=== PATIENT | female | born 1950 ===

== ENCOUNTER → 2020-12-17 10:08 | Outpatient (BNVA) | payer MEDICARE, SELFPAY | PROVIDERS: PCP Internal Medicine; Visit Provider Nurse Practitioner Family | DX: M79.7 Fibromyalgia (principal); M79.641 Pain in right hand; M79.642 Pain in left hand | CPT/HCPCS: 99212 ==

== ENCOUNTER → 2022-05-28 13:20 | Outpatient (BNVA) | payer MEDICARE, SELFPAY | PROVIDERS: PCP Internal Medicine; Visit Provider Nurse Practitioner Family | DX: M79.7 Fibromyalgia (principal); M79.641 Pain in right hand; M79.642 Pain in left hand; M25.50 Pain in unspecified joint; E11.42 Type 2 diabetes mellitus with diabetic polyneuropathy; F32.A Depression, unspecified; Z79.84 Long term (current) use of oral hypoglycemic drugs; Z79.899 Other long term (current) drug therapy | CPT/HCPCS: 99212 ==

== ENCOUNTER 2022-06-10 13:38 | Outpatient (REF) | payer OTHER, SELFPAY ==
[2022-06-10 14:48] LABS: Alanine Aminotransferase 9 U/L (0-31); Albumin Level 4.4 g/dL (3.5-5.0); Alkaline Phosphatase 83 U/L (39-117); Anion Gap 12 (12-20); Aspartate Amino Transferase 12 U/L (5-31); Bilirubin Total 0.5 mg/dL (0.0-1.0); Blood Urea Nitrogen 10 mg/dL (9-16); C Reactive Protein 0.36 mg/dL (< or = 0.50); Calcium 9.4 mg/dL (8.4-10.2); Carbon Dioxide 27 mmol/L (22-29); Chloride 105 mmol/L (96-108); Estimated Glomerular Filt Rate > 60; Glucose Random 173 mg/dL (60-115); Potassium 4.2 mmol/L (3.3-5.1); Rheumatoid Factor < 13.0 IU/mL (<15.0); Sodium 140 mmol/L (135-145); Total Protein 7.3 g/dL (6.5-8.0)
[2022-06-10 15:03] LABS: Erythrocyte Sedimentation Rate 16 MM/HR (0-20)
== END 2022-06-10 13:39 | disposition home or self-care (01) ==
LOC: HO.LAB 13:38
PROVIDERS: PCP Internal Medicine; Visit Provider Nurse Practitioner Family
DX: M79.641 Pain in right hand (principal); M79.642 Pain in left hand; M25.50 Pain in unspecified joint
CPT/HCPCS: 36415; 80053; 85652; 86140; 86431

== ENCOUNTER 2023-05-27 13:08 | Outpatient (AMB) | payer OTHER, SELFPAY ==
--- NOTE | 2023-05-27 13:11 | MHC.OFFVIS ---
Intake Vital Signs 05/27/23 13:30 Height 5 ft 6 in Weight 169 lb 5.04 oz BMI 27.3 BP 132/60 Blood Pressure Location Rt brachial Position Sitting Pulse 79 Pulse Source Pulse Oximeter Temp 97.4 F Temp Source Skin Pulse Oximetry (%) 98 Oxygen Delivery Method Room Air Intake Visit Reasons: Fibromyalgia Intake Note: Patient last seen 06/25/22 by Juliane, presents today for fibromyalgia follow up and test results. Reports new onset of lumps in different areas of the body. Assistant Golf Course Superintendent Required: No Assistant Golf Course Superintendent Name: Dion [id number] Accompanied by: Self / Same As Patient Allergies pregabalin [From LYRICA] Allergy (Mild, Verified 05/27/23 13:19) HYPER seafood Allergy (Unknown, Uncoded 05/27/23 13:19) Anaphylaxis HPI HPI Comments History of Present Illness Details Ms Royal is 71-year-old female presents for follow-up of fibromyalgia. Prior Visit; 05/2022: Ms Royal is 71-year-old female presents for follow-up of fibromyalgia. Last seen in clinic December 2020. Patient reports continued diffuse arthralgia due to her fibromyalgia. She manages her symptoms with amitriptyline 150 mg at night. She continues to follow with mental health and states her depression is well controlled on fluoxetine. She states she tried Lyrica in the past but found it was not helpful. She was prescribed baclofen in the past, she states she cannot recall taking this medication. She reports so far the medications she has tried for her fibromyalgia symptoms have not been helpful. She states she is not able to exercise due to her pain. She uses a cane that she states is needed for balance issues. She reports bilateral hand pain and numbness that started 2 months ago. She admits to weakness, pain and numbness throughout both hands. She states the numbness is present during the day and night. She states she has an upcoming appointment with OT and her primary care has ordered bilateral hand x-rays to [facility]. She reports diabetes mellitus which she states has been well controlled. She also has history of peripheral neuropathy. Denies history of iritis, uveitis, oral ulcers, inflammatory bowel disease, fevers, rash or Raynaud's. [facility] Medical History (Updated 05/27/23 @ 14:03 by STEFFEN Escobar) Carpal tunnel syndrome on both sides Medication monitoring encounter Uterine cancer Surgical History Hx of tonsillectomy Hx of cholecystectomy Hx of hysterectomy Family History Father HTN (hypertension) Diabetes Other Asthma Social History (Updated 05/27/23 @ 13:32 by PO Maki) Household Members: None Housing: House Are you a primary critical care cns to a significant other at home: No Do you presently have visiting nurse or other home services: Yes ([employer]) Alcohol intake: former Patient Tobacco Use Status: Never used Tobacco Current occupational status: retired Physical Exam Vital Signs: Last Vital Signs Temp 97.4 F 05/27/23 13:30 Pulse 79 05/27/23 13:30 BP 132/60 05/27/23 13:30 Pulse Ox 98 05/27/23 13:30 Oxygen Delivery Method Room Air 05/27/23 13:30 BMI result Body Mass Index 27.3 APPEARANCE: Patient in no acute distress EYES: no redness, pupils equal and reactive to light, eyelids normal EARS: External ear normal, canal clear and tympanic membrane normal. NOSE/SINUS: Airflow through both nares, no nasal discharge, no bleeding THROAT: Oral mucosa moist, no ulcerations NECK: No thyromegaly or masses, no adenopathy, trachea midline. HEART: Regular rhythm, S1-S2 heard, no murmurs, rubs or gallops. LUNG: Clear to auscultation, respiratory rate regular nonlabored. ABD: Normal bowel sounds, abdomen soft, nontender. EXTREMITIES: No edema, no calf tenderness, normal peripheral pulses. NEURO: Oriented and alert x3. No focal weakness. Reflexes symmetric. Antalgic, walks with a ramsey. SKIN: No inflammatory or neoplastic lesions. Normal color and turgor JOINT EXAM:?? Cervical Spine: Full range of motion without pain; no tenderness. Thoracic Spine:? No scoliosis.? No tenderness on palpation. Lumbar Spine: Alignment normal.? Full range of motion without pain, but some tenderness. Hands: LEFT: Normal range of motion. Tenderness reported to palpation throughout all MCPs and PIPs, and at the base of the CMC. No synovitis. No increased warmth or erythema. Able to make a full fist and has a good biotechnologist strength. Negative Tinel's sign, negative Phalen sign. RIGHT: Normal range of motion. tenderness to palpation at the base of the CMC otherwise without tenderness, swelling, increased warmth or erythema. Able to make a full fist and has good biotechnologist strength. Negative Tinel sign, negative Phalen sign. Wrists:? Normal range of motion. Pain reported with flexion and extension. Tenderness to palpation over the center of the wrist bilaterally, possibly some soft tissue swelling. No increased warmth or erythema. Elbows: Normal pain-free range of motion without tenderness, swelling, increased warmth or erythema. Shoulders:?? Full range of motion without pain. Tenderness at joint line but no weakness, swelling, increased warmth or erythema. Hips:? Full range of motion without pain. Hip bursa:? No tenderness. Knees:?? Normal pain-free range of motion without tenderness, swelling, increased warmth or erythema.? There is no effusion or crepitation Ankles:? Normal pain-free range of motion without tenderness, swelling, increased warmth or erythema. Feet:? Normal pain-free range of motion without tenderness, swelling, increased warmth or erythema. Tender points: Tenderness to digital palpation at the occiput, trapezius, second rib, lateral epicondyle, knees, greater trochanter and gluteal area bilaterally. Results Reviewed Results Reviewed: 03/09/2019 [facility] CPK 45, CRP 0.18, sed rate 13, immunofixation panel no monoclonal protein detected, CCP > 16, Sjogren's antibodies negative, Lyme negative. 05/10/2018-x-ray bilateral hand-unremarkable 05/10/2018-x-ray bilateral feet with degenerative changes. Assessment & Plan Assessment & Plan (1) Fibromyalgia: Code(s): M79.7 - Fibromyalgia (2) Bilateral hand pain: Code(s): M79.641 - Pain in right hand; M79.642 - Pain in left hand (3) Carpal tunnel syndrome on both sides: Code(s): G56.03 - Carpal tunnel syndrome, bilateral upper limbs (4) Medication monitoring encounter: Code(s): Z51.81 - Encounter for therapeutic drug level monitoring (5) Peripheral neuropathy: Code(s): G62.9 - Polyneuropathy, unspecified Qualifiers: Peripheral neuropathy type: polyneuropathy, other Qualified Code(s): G62.89 - Other specified polyneuropathies Plan #Chronic bilateral hand pain/CTS. Bilateral hand X-rays in 2019 were unremarkable but will update imaging. On exam she has tenderness to palpation throughout the left MCPs and PIPs and bilateral CMCs. No synovitis noted. She has pain in both wrists with range of motion, and continue with tenderness to palpation and soft tissue swelling in the center of each wrist as noted at prior visit (r>l). She complains of numbness and tingling to fingers, CTS test negative of PE. She did say she had surgery to the left hand for CTS but it is still present. She did not want to do the right hand. Will check CMP, CRP and sed rate. Previous CCP negative, also negative rheumatoid factor found. I will do hand xrays, give her a course of prednisone. She may benefit from a cockup splint and will an RX for that. #FM/Medication Monitoring: She continues with multiple fibromyalgia tender points She can continue on her current regimen for the fibromyalgia Follow-up in 2 months. 35 minutes spent reviewing chart, evaluating patient documenting. Orders: Orders Erythrocyte Sedimentation Rate Today G56.03 - Carpal tunnel syndrome, bilateral upper limbs, Z51.81 - Encounter for therapeutic drug level monitoring Complete Blood Count Auto Diff Today G56.03 - Carpal tunnel syndrome, bilateral upper limbs, Z51.81 - Encounter for therapeutic drug level monitoring Comprehensive Met. Panel Today G56.03 - Carpal tunnel syndrome, bilateral upper limbs, Z51.81 - Encounter for therapeutic drug level monitoring C Reactive Protein Today G56.03 - Carpal tunnel syndrome, bilateral upper limbs, Z51.81 - Encounter for therapeutic drug level monitoring XR hand LT min 3V Today M79.641 - Pain in right hand, M79.642 - Pain in left hand XR hand RT min 3V Today M79.641 - Pain in right hand, M79.642 - Pain in left hand Medications: New prednisone 4 tablets x 7 days 3 tablets x 7 days 2 tablets x 7 days 1 tablet x 7 days 70 tabs 1RF Hand pain and Swelling M79.641 - Pain in right hand, M79.642 - Pain in left hand Coding Level of Care Code Est Pt Level 4 (18063) Diagnoses Fibromyalgia M79.7 Bilateral hand pain M79.641; M79.642 Carpal tunnel syndrome on both sides G56.03 Medication monitoring encounter Z51.81 Other polyneuropathy G62.89 Peripheral neuropathy type: polyneuropathy, other
[2023-05-27 13:30] VITALS: BP 132/60; PULSE 79; TEMP 36.3; O2SAT 98; BMI 27.3
== END 2023-05-27 14:12 | disposition home or self-care (01) ==
PROVIDERS: PCP Internal Medicine; Visit Provider Nurse Practitioner Family
DX: M79.7 Fibromyalgia (principal); M79.641 Pain in right hand; M79.642 Pain in left hand; G56.03 Carpal tunnel syndrome, bilateral upper limbs; Z51.81 Encounter for therapeutic drug level monitoring; G62.89 Other specified polyneuropathies
CPT/HCPCS: 99214

== ENCOUNTER → 2023-05-27 13:08 | Outpatient (BNVA) | payer OTHER, SELFPAY | PROVIDERS: PCP Internal Medicine; Visit Provider Nurse Practitioner Family | DX: M79.7 Fibromyalgia (principal); Z51.81 Encounter for therapeutic drug level monitoring; M79.641 Pain in right hand; M79.642 Pain in left hand; G56.03 Carpal tunnel syndrome, bilateral upper limbs; G62.89 Other specified polyneuropathies; Z79.899 Other long term (current) drug therapy | CPT/HCPCS: 99212 ==

== ENCOUNTER 2023-07-27 14:11 | Outpatient (AMB) | payer OTHER, SELFPAY ==
--- NOTE | 2023-07-27 14:14 | MHC.OFFVIS ---
Vital Signs 07/27/23 14:20 Height 5 ft 6 in Weight 165 lb 12.602 oz BMI 26.8 BP 102/62 Blood Pressure Location Rt brachial Position Sitting Pulse 70 Pulse Source Pulse Oximeter Pulse Oximetry (%) 97 Oxygen Delivery Method Room Air Intake Visit Reasons: Hand/Wrist Pain/FM Intake Note: Patient last seen 05/27/23, presents today for follow up and test results. City Routeman Required: Yes City Routeman Name: [id number] Kaleb Information Interpreted: clinical only Accompanied by: Self / Same As Patient Allergies pregabalin [From LYRICA] Allergy (Mild, Verified 07/27/23 14:21) HYPER seafood Allergy (Unknown, Uncoded 07/27/23 14:21) Anaphylaxis HPI Comments Details: Ms Royal is 71-year-old female presents for follow-up of fibromyalgia. She denies hospitalization or new diagnosis onset since last visit Prior Visit; 05/2022: Ms Royal is 71-year-old female presents for follow-up of fibromyalgia. Patient reports continued diffuse arthralgia due to her fibromyalgia. She manages her symptoms with amitriptyline 150 mg at night. She continues to follow with mental health and states her depression is well controlled on fluoxetine. She states she tried Lyrica in the past but found it was not helpful. She was prescribed baclofen in the past, she states she cannot recall taking this medication. She reports so far the medications she has tried for her fibromyalgia symptoms have not been helpful. She states she is not able to exercise due to her pain. She uses a cane that she states is needed for balance issues. She reports bilateral hand pain and numbness that started 2 months ago. She admits to weakness, pain and numbness throughout both hands. She states the numbness is present during the day and night. She states she has an upcoming appointment with OT and her primary care has ordered bilateral hand x-rays to [facility]. She reports diabetes mellitus which she states has been well controlled. She also has history of peripheral neuropathy. Denies history of iritis, uveitis, oral ulcers, inflammatory bowel disease, fevers, rash or Raynaud's. [facility] Medical History (Updated 08/24/23 @ 22:08 by STEFFEN Escobar) Right shoulder pain Bilateral shoulder pain Carpal tunnel syndrome on both sides Medication monitoring encounter Uterine cancer Surgical History Hx of tonsillectomy Hx of cholecystectomy Hx of hysterectomy Family History Father HTN (hypertension) Diabetes Other Asthma Social History (Updated 05/27/23 @ 13:32 by PO Maki) Household Members: None Housing: House Are you a primary lpn care manager to a significant other at home: No Do you presently have visiting nurse or other home services: Yes (ORDERLY) Alcohol intake: former Patient Tobacco Use Status: Never used Tobacco Current occupational status: retired Review of Systems Const All systems reviewed & are unremarkable except as noted in HPI and below Physical Exam Vital Signs: Last Vital Signs Pulse 70 07/27/23 14:20 BP 102/62 07/27/23 14:20 Pulse Ox 97 07/27/23 14:20 Oxygen Delivery Method Room Air 07/27/23 14:20 BMI result Body Mass Index 26.8 APPEARANCE: Patient in no acute distress EYES: no redness, pupils equal and reactive to light, eyelids normal EARS: External ear normal, canal clear and tympanic membrane normal. NOSE/SINUS: Airflow through both nares, no nasal discharge, no bleeding THROAT: Oral mucosa moist, no ulcerations NECK: No thyromegaly or masses, no adenopathy, trachea midline. HEART: Regular rhythm, S1-S2 heard, no murmurs, rubs or gallops. LUNG: Clear to auscultation, respiratory rate regular nonlabored. ABD: Normal bowel sounds, abdomen soft, nontender. EXTREMITIES: No edema, no calf tenderness, normal peripheral pulses. NEURO: Oriented and alert x3. No focal weakness. Reflexes symmetric. Antalgic, walks with a cane. SKIN: No inflammatory or neoplastic lesions. Normal color and turgor JOINT EXAM:?? Cervical Spine: Full range of motion without pain; no tenderness. Thoracic Spine:? No scoliosis.? No tenderness on palpation. Lumbar Spine: Alignment normal.? Full range of motion without pain, but some tenderness. Hands: LEFT: Normal range of motion. Tenderness reported to palpation throughout all MCPs and PIPs, and at the base of the CMC. No synovitis. No increased warmth or erythema. Able to make a full fist and has a good tafe lecturer strength. Negative Tinel's sign, negative Phalen sign. RIGHT: Normal range of motion. tenderness to palpation at the base of the CMC otherwise without tenderness, swelling, increased warmth or erythema. Able to make a full fist and has good tafe lecturer strength. Negative Tinel sign, negative Phalen sign. Wrists:? Normal range of motion. Pain reported with flexion and extension. Tenderness to palpation over the center of the wrist bilaterally, possibly some soft tissue swelling. No increased warmth or erythema. Elbows: Normal pain-free range of motion without tenderness, swelling, increased warmth or erythema. Shoulders:?? Full range of motion without pain. Tenderness at joint line but no weakness, swelling, increased warmth or erythema. Hips:? Full range of motion without pain. Hip bursa:? No tenderness. Knees:?? Normal pain-free range of motion without tenderness, swelling, increased warmth or erythema.? There is no effusion or crepitation Ankles:? Normal pain-free range of motion without tenderness, swelling, increased warmth or erythema. Feet:? Normal pain-free range of motion without tenderness, swelling, increased warmth or erythema. Tender points: Tenderness to digital palpation at the occiput, trapezius, second rib, lateral epicondyle, knees, greater trochanter and gluteal area bilaterally. Office Procedures Joint Injection/Drain Joint Injection/Drain Primary Site: right shoulder Prep: site was prepped using aseptic technique Injected: 40 mg of, Kenalog, 1% plain lidocaine and other (1% Lidocaine 2ml) Approach Used: anterolateral Procedure: The patient tolerated the procedure well Coding 91812 - Large joint Procedure code (CPT) selection complete Results Reviewed Results Reviewed: ESR/CRP/CMP within normal range Assessment & Plan Assessment & Plan (1) Fibromyalgia: Code(s): M79.7 - Fibromyalgia Category: Medical (2) Bilateral hand pain: Code(s): M79.641 - Pain in right hand; M79.642 - Pain in left hand Category: Medical (3) Carpal tunnel syndrome on both sides: Code(s): G56.03 - Carpal tunnel syndrome, bilateral upper limbs Category: Medical (4) Medication monitoring encounter: Code(s): Z51.81 - Encounter for therapeutic drug level monitoring Category: Medical (5) Right shoulder pain: Code(s): M25.511 - Pain in right shoulder Category: Medical Qualifiers: Chronicity: chronic Qualified Code(s): M25.511 - Pain in right shoulder; G89.29 - Other chronic pain Plan #Chronic bilateral hand pain/CTS. Bilateral hands improved with course of Prednisone. Hand xrays were unremarkable. Continue cockup splint at night. #FM/Medication Monitoring: She continues with multiple fibromyalgia tender points She can continue on her current regimen for the fibromyalgia. Renew Tramadol RX which she finds helpful #Right Shoulder Pain: Corticosteroid injection administered. Patient tolerated procedure well. She also given after care instructions Follow-up in 6 months. 20 minutes spent reviewing chart, evaluating patient documenting. Orders: Orders AMB Joint Injection/Aspiration 07/27/23 M25.511 - Pain in right shoulder, M25.512 - Pain in left shoulder Medications: New tramadol 50 mg PO BID PRN 60 tabs 2RF pain M79.7 - Fibromyalgia Coding Level of Care Code Est Pt Level 3 (59466) Complex EM visit Add On G2211 Diagnoses Fibromyalgia M79.7 Bilateral hand pain M79.641; M79.642 Carpal tunnel syndrome on both sides G56.03 Medication monitoring encounter Z51.81 Chronic right shoulder pain M25.511; G89.29 Chronicity: chronic CPT Codes Coding - 21087 Large joint: 37066 - Large joint ([id number])
[2023-07-27 14:20] VITALS: BP 102/62; PULSE 70; O2SAT 97; BMI 26.8
== END 2023-07-27 14:41 | disposition home or self-care (01) ==
LOC: HO.RHE 14:11
PROVIDERS: PCP Internal Medicine; Visit Provider Nurse Practitioner Family
DX: M79.7 Fibromyalgia (principal); M79.641 Pain in right hand; M79.642 Pain in left hand; G56.03 Carpal tunnel syndrome, bilateral upper limbs; Z51.81 Encounter for therapeutic drug level monitoring; M25.511 Pain in right shoulder; G89.29 Other chronic pain
CPT/HCPCS: 20610; 99213

== ENCOUNTER → 2023-07-27 14:11 | Outpatient (BNVA) | payer OTHER, SELFPAY | PROVIDERS: PCP Internal Medicine; Visit Provider Nurse Practitioner Family | DX: M25.511 Pain in right shoulder (principal); M25.512 Pain in left shoulder; M79.7 Fibromyalgia; G56.03 Carpal tunnel syndrome, bilateral upper limbs; M79.641 Pain in right hand; M79.642 Pain in left hand; G89.29 Other chronic pain; Z51.81 Encounter for therapeutic drug level monitoring | CPT/HCPCS: 20610; 99212 ==

== ENCOUNTER → 2023-11-30 14:02 | Outpatient (RCR) | payer MEDICARE, SELFPAY ==
[2020-01-26 13:06] LABS: MANUAL DIFF FLAG NO
[2020-01-26 13:07] VITALS: BP 164/71; PULSE 76; RESP 18; TEMP 36.4; O2SAT 96
[2020-01-26 13:11] VITALS: BMI 28.4
--- NOTE | 2020-01-26 13:21 | PM.HEMONCPN ---
Medical Summary - Medical Summary Chief complaint: Follow up Medical Summary: Diagnosis: Biclonal IgG lambda Normal immunoglobulin levels. No anemia, hypercalcemia or renal dysfunction. Blood work done for workup of fibromyalgia. Hematological workup showed normal serum immunofixation, 24 hour urine immunofixation was negative, kappa/lambda ratio normal at 1.03, normal beta 2 microglobulin of 2.0, serum protein electrophoresis showed normal pattern. Medical and Surgical History Hypothyroidism Fibromyalgia Hypertension Hypercholesterolemia Uterine cancer, hysterectomy at age 28 Type 2 diabetes mellitus Peripheral neuropathy Depression/anxiety Asthma Angina Cholecystectomy Bilateral oophorectomy Family History Mother age 96, she had Alzheimer's and asthma. Father age 93. Uterine cancer in her family. 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 Menstrual History Menarche age 11 3 para 3 Interval History Interval history: Patient is here in follow-up. She is doing okay, has no new complaints. She reports no interim medical problems or being started on new medications. No history of any infections. She does report some sweats but no significant fever or chills. Her appetite is okay but she did lose about 4 lb in the last 6 months. She reports no change in bowel habits. She is up-to-date on mammogram and colonoscopy. Review of Systems - Constitutional Reports no additional constitutional complaints - Cardiovascular Reports no additional cardiovascular complaints - Respiratory Reports no additional respiratory complaints - Gastrointestinal Reports no additional gastrointestinal complaints PMFSH Smoking status: Never smoker Home Medications and Allergies Home Medications Medication Instructions Recorded Confirmed Type albuterol sulfate 2 puff PO Q4H PRN 01/26/20 01/26/20 History amitriptyline 1 tab PO BEDTIME 01/26/20 01/26/20 History clonazepam 1 tab PO BEDTIME PRN 01/26/20 01/26/20 History fluoxetine 1 cap PO QAM 01/26/20 01/26/20 History levothyroxine 1 tab PO DAILY 01/26/20 01/26/20 History lisinopril 1 tab PO BID 01/26/20 01/26/20 History metformin 1 tab PO BID 01/26/20 01/26/20 History Allergies Allergy/AdvReac Type Severity Reaction Status Date / Time pregabalin [From LYRICA] Allergy Mild HYPER Verified 01/26/20 13:15 seafood Allergy Unknown Anaphylaxis Uncoded 01/26/20 13:15 Exam Vital signs: Vital Signs Temp 97.6 F 01/26/20 13:07 Pulse 76 01/26/20 13:07 Resp 18 01/26/20 13:07 BP 164/71 H 01/26/20 13:07 Pulse Ox 96 01/26/20 13:07 Intake & Output 01/25/20 01/26/20 01/26/20 18:59 06:59 18:59 Other: Weight 80 kg Weight 80 kg Body Mass Index 28.4 - Constitutional Present: no acute distress - Routine HEENT Exam Head: Present: normal inspection Eye: Present: EOMI - Routine Cardiovascular Exam Cardiovascular: Present: RRR, S1, S2 - Routine Abdominal Exam Present: normal bowel sounds, soft - Routine Extremities Exam Absent: calf tenderness - Routine Skin Exam Present: intact. Absent: cyanosis - Routine Neurological Exam Present: alert, oriented X3 Data - Labs CBC & Chem 7: 01/26/20 13:05 01/26/20 13:05 Progress Note: A/P (1) Biclonal gammopathy Status: Acute Assessment and plan: 1. This is a 68-year-old woman with biclonal IgG lambda, normal immunoglobulin levels. This is not the same as biclonal gammopathy where a patient may have 2 different monoclonal proteins, typically IgA and IgM protein in the same patient. Such patients, who have true monoclonal protein would need workup for multiple myeloma. This is similar to a polyclonal increase in immunoglobulin which could be related to most likely inflammatory or reactive process. Her blood work looks good today. Anemia has resolved. Follow-up as needed. - Time Spent With Patient Total time spent is greater than 50% in coordination of care (as documented) at patient's floor/unit and/or counseling patient: 15 - 24 minutes
[2020-01-26 13:29] LABS: Basophils Percent Auto 0.6 % (0-2); Eosinophils Absolute Auto 0.2 X10*3/uL (0.0-0.4); Eosinophils Percent Auto 2.7 % (0-4); Hematocrit 39.5 % (37-47); Imm Gran Abs Auto 0.02 X10*3/uL (0.00-0.03); Imm Gran Pct Auto 0.3 % (0.0-0.4); Lymphocytes Absolute Auto 2.5 X10*3/uL (1.2-4.9); Lymphocytes Percent Auto 38.1 % (20-40); Mean Corpuscular HGB Conc 32.9 g/dl (31.0-35.0); Mean Corpuscular Volume 91.2 fL (80-98); Mean Platelet Volume 10.8 fL (9.4-12.3); Monocytes Absolute Auto 0.3 X10*3/uL (0.1-1.2); Neutrophils Absolute Auto 3.5 X10*3/uL (2.0-8.3); Neutrophils Percent Auto 53.3 % (45-73); Platelet Count 215 X10*3/uL (160-400); Red Blood Count 4.33 X10*6/uL (4.20-5.50); Red Cell Distribution Width 12.6 % (11.0-16.0); White Blood Count 6.6 X10*3/uL (4.8-10.8)
[2020-01-26 13:57] LABS: Alanine Aminotransferase 8 U/L (0-31); Albumin Level 4.4 g/dL (3.5-5.0); Alkaline Phosphatase 103 U/L (39-117); Anion Gap 15 (12-20); Aspartate Amino Transferase 14 U/L (5-31); Bilirubin Total 0.3 mg/dL (0.0-1.0); Blood Urea Nitrogen 14 mg/dL (9-16); Calcium 9.2 mg/dL (8.4-10.2); Carbon Dioxide 27 mmol/L (22-29); Chloride 104 mmol/L (96-108); Creatinine Clr Calc Pharmacy 67.2; Estimated Glomerular Filt Rate > 60; Glucose Random 141 mg/dL (60-115); Sodium 142 mmol/L (135-145); Total Protein 7.2 g/dL (6.5-8.0)
--- NOTE | 2020-01-26 14:04 | MHC.HEMONC ---
Patient here for folow up today. Pt reports decreased appetite and feeling hot all over for 2 months now. MD made aware, labs drawn, reviewed by .
[2020-01-27 14:06] LABS: Beta-2 Microglobulin, Serum 1.99 mg/L (< OR = 2.51)
[2020-01-30 12:32] LABS: IgA 219 mg/dL (70-320); IgG 840 mg/dL (600-1540); IgM 257 mg/dL (50-300)
== END | disposition home or self-care (01) ==
LOC: HO.ONC 01-26 12:51
PROVIDERS: PCP Internal Medicine; Visit Provider Internal Medicine
DX: D47.2 Monoclonal gammopathy (principal); Z86.2 Personal history of diseases of the blood and blood-forming organs and certain disorders involving the immune mechanism
CPT/HCPCS: 36415; 80053; 82232; 82784; 85025; 86334; 99213

== ENCOUNTER 2024-01-26 14:25 | Outpatient (AMB) | payer OTHER, SELFPAY ==
[2024-01-26 14:29] VITALS: BP 108/60; BMI 25.3
--- NOTE | 2024-01-26 14:29 | A.OFFVIS_ITS ---
Vital Signs 01/26/24 14:29 Height 5 ft 6 in Weight 157 lb BMI 25.3 BP 108/60 Blood Pressure Location Lt brachial Position Sitting Intake Visit Reasons: FM/OA Intake Note: Patient presents today for follow up on fibromyalgia and osteoarthritis. She was last seen in the office on 07/27/23 by Saray Savage. Patient [id number] of swelling in her hands with pins and needles. Policy Director Name: [id number] Nikki Allergies pregabalin [From LYRICA] Allergy (Mild, Verified 01/26/24 14:33) HYPER seafood Allergy (Unknown, Uncoded 01/26/24 14:33) Anaphylaxis Medication List - Last Reconciled 01/26/24 by Sofia Stewart MD acetaminophen ER (Tylenol Arthritis Pain) 650 mg PO Q8H PRN albuterol sulfate 90 mcg/actuation 2 puffs PO Q4H PRN amitriptyline 50 mg PO BEDTIME bupropion HCl XL 150 mg PO DAILY clonazepam 1 mg PO BID PRN diclofenac sodium 1% grams topical QID fluoxetine 1 cap PO QAM fluticasone propionate 110 mcg/actuation (Flovent HFA) 2 puffs inhalation BID levothyroxine 1 tab PO DAILY lisinopril 1 tab PO BID metformin 1 tab PO BID tramadol 50 mg PO BID PRN HPI Comments Details: Patient is a 73-year-old female with diabetes complicated by peripheral neuropathy, hypertension, hypothyroidism and fibromyalgia who presents for follow-up Interval History: Last seen 07/27/2023 with Saray Savage. At that time she was continuing to complain of diffuse arthralgia due to her fibromyalgia. She manages her symptoms with amitriptyline 150 mg at night but states that she still has pain which limits her ability to do anything even get out of bed sometimes. Of note she has noticed that her weight has been decreasing. She states that she has been eating less but states that her appetite has been okay based on what she thinks. Rheumatologic History: Diagnosis of fibromyalgia maintained on amitriptyline. Has tried Lyrica in the past but found it was not helpful. Was also prescribed baclofen in the past but this was also found not to be helpful Current Rheumatology Medication(s): Amitriptyline 150mg Po at bedtime [facility] Medical History (Updated 01/26/24 @ 14:58 by Sofia Stewart MD) Weight loss, unintentional Osteoarthritis involving multiple joints on both sides of body Right shoulder pain Bilateral shoulder pain Carpal tunnel syndrome on both sides Medication monitoring encounter Uterine cancer Surgical History Hx of tonsillectomy Hx of cholecystectomy Hx of hysterectomy Family History Father HTN (hypertension) Diabetes Other Asthma Social History (Updated 05/27/23 @ 13:32 by PO Maki) Household Members: None Housing: House Are you a primary healthcare administration internship to a significant other at home: No Do you presently have 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 ?Clear to auscultation bilaterally. ?No crackles, rales, rhonchi, wheezes heard. Cardiac System Regular rate and rhythm. ?S1 and S2 heard no murmurs. ?Radial pulses intact bilaterally MSK No synovitis noted to any joints. Pain with palpation of MCPs interphalangeal space PIPs DIPs wrists forearm elbows shoulders as well as knees. Tender points:??Tenderness to digital palpation at the occiput, trapezius, second rib, lateral epicondyle, knees, greater trochanter bilaterally, and left gluteal. Results Reviewed Results Reviewed: No results within the past year Assessment & Plan Assessment & Plan (1) Fibromyalgia: Code(s): M79.7 - Fibromyalgia Category: Medical Plan: #Fibromyalgia Patient with fibromyalgia with continued breakthrough pains. We will refer to pain management for assistance with pain control. Encouraged exercises (2) Osteoarthritis involving multiple joints on both sides of body: Code(s): M15.9 - Polyosteoarthritis, unspecified Category: Medical Plan: #OA Patient with polyarticular OA. Recommended topical diclofenac up to 4 times a day. (3) Weight loss, unintentional: Code(s): R63.4 - Abnormal weight loss Category: Medical Plan: #Weight loss Patient with weight loss since her last visit. Unintentional. We will check SPEP (4) Fibromyalgia: Code(s): M79.7 - Fibromyalgia Category: Medical Plan I spent 25 minutes reviewing the record and labs, seeing the patient, discussing the treatment plan and documenting in the medical record ? Orders: Orders Cyclic Citrullinated Peptide Today M79.7 - Fibromyalgia JULITA Reflex Titer and Pattern Today M79.7 - Fibromyalgia Anti Extractable Nuclear Ag Today M79.7 - Fibromyalgia XR hand wrist RT Today M15.9 - Polyosteoarthritis, unspecified, M79.7 - Fibromyalgia Complete Blood Count Auto Diff Today M79.7 - Fibromyalgia C Reactive Protein Today M79.7 - Fibromyalgia Comprehensive Met. Panel Today M79.7 - Fibromyalgia Erythrocyte Sedimentation Rate Today M79.7 - Fibromyalgia Rheumatoid Factor Today M79.7 - Fibromyalgia XR hand wrist LT Today M15.9 - Polyosteoarthritis, unspecified, M79.7 - Fibromyalgia XR knee RT 3V Today M15.9 - Polyosteoarthritis, unspecified, M79.7 - Fibromyalgia XR knee LT 3V Today M15.9 - Polyosteoarthritis, unspecified, M79.7 - Fibromyalgia XR lumbar spine 4V min Today M15.9 - Polyosteoarthritis, unspecified, M79.7 - Fibromyalgia Protein Electrophoresis, Serum Today R63.4 - Abnormal weight loss Referrals Pain Management Referral M79.7 - Fibromyalgia Coding Level of Care Code Est Pt Level 3 (01735) Diagnoses Fibromyalgia M79.7 Osteoarthritis involving multiple joints on both sides of body M15.9 Weight loss, unintentional R63.4
== END 2024-01-26 15:10 | disposition home or self-care (01) ==
PROVIDERS: PCP Internal Medicine; Visit Provider Student in an Organized Health Care Education/Training Program
DX: M79.7 Fibromyalgia (principal); M15.9 Polyosteoarthritis, unspecified; R63.4 Abnormal weight loss
CPT/HCPCS: 99213

== ENCOUNTER → 2024-01-26 14:25 | Outpatient (BNVA) | payer OTHER, SELFPAY | PROVIDERS: PCP Internal Medicine; Visit Provider Student in an Organized Health Care Education/Training Program | DX: M79.7 Fibromyalgia (principal); M15.9 Polyosteoarthritis, unspecified; R63.4 Abnormal weight loss | CPT/HCPCS: 99212 ==

== ENCOUNTER 2024-02-10 13:43 | Outpatient (AMB) | payer OTHER, SELFPAY ==
--- NOTE | 2024-02-10 13:50 | A.OFFVIS_ITS ---
Vital Signs 02/10/24 13:54 Height 5 ft 6 in Weight 159 lb BMI 25.7 BP 124/67 Blood Pressure Location Lt brachial Position Sitting Pulse 72 Pulse Source Pulse Oximeter Pulse Oximetry (%) 97 Oxygen Delivery Method Room Air Intake Visit Reasons: Fibromyalgia Intake Note: Pain today 01/12 Telehealth Case Manager Required: Yes Telehealth Case Manager Language: Linotype Mechanic Name: Ayala- Grandchild Accompanied by: Grand Child Allergies pregabalin [From LYRICA] Allergy (Mild, Verified 02/10/24 13:54) HYPER seafood Allergy (Unknown, Uncoded 01/26/24 14:33) Anaphylaxis HPI HPI Fibromyalgia: Details: Patient is a pleasant 73-year-old Portuguese-speaking female with history of polyarthralgia, anxiety and depression, fibromyalgia and history of uterine cancer presents today for initial evaluation for widespread but pain due to fibromyalgia. She reports pain most significant in lower back and left. Patient was referred to our office by Rheumatology. Denies any recent trauma, injury, or falls. Patient reports impaired gait and balance issues and dizziness and has completed physical therapy about 3 months ago at [facility] with minimal improvement in her pain reduction or functioning. Patient utilizes cane with walking today, reports using walker at home. Pain is constant and is most sever upon awakening in the morning and at night. Pain is rated at 10/10. Back pain is axial and does not radiate into lower extremities. Left knee pain is localized to grossly anterior aspects of left knee with lateral and medial joint tenderness and crepitus on flexion. She denies previous spine or joint injections. Pain affects her daily activities and functioning, mood, sleep, denies any fever or chills, locking or buckling, bladder or bowel dysfunction or saddle anesthesia. Location: Low back, left knee, widespread body pain Duration: Chronic pain, worsening for past 5-6 years Characteristics of symptom or complaint: Aching, spasming, throbbing, sharp, tingling, numbness, dull, heavy Aggravating or associated factors: Movements, walking, prolonged standing, cold weather, stress Relieving factors: Tramadol, Tylenol, amitriptyline, heat, diclofenac gel Treatment: PT at [facility] summer 2023-no relief, cane/walker [facility] Medical History (Updated 02/10/24 @ 14:04 by FE Belle) Weight loss, unintentional Osteoarthritis involving multiple joints on both sides of body Right shoulder pain Bilateral shoulder pain Carpal tunnel syndrome on both sides Medication monitoring encounter Uterine cancer Surgical History Hx of tonsillectomy Hx of cholecystectomy Hx of hysterectomy Family History Father HTN (hypertension) Diabetes Other Asthma Social History (Updated 05/27/23 @ 13:32 by PO Maki) Household Members: None Housing: House Are you a primary director of critical care to a significant other at home: No 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 No acute distress. Alert and oriented. Mood and affect appropriate. Follows and participates in conversation appropriately. Respiratory effort is unlabored. No cough. Able to transition from sit to stand unassisted. Uses cane with ambulation. Ambulates with bilaterally normal heel strike and toe off, reports LLE weakness due to knee pain. General: Yes no CVA tenderness Back/Spine/Pelvis Other: Limited lumbar ROM due to pain. Painful facet loading bilaterally. Lumbar extension reproduces moderate-severe pain. Flexion is intact and reproduces mild pain. No midline tenderness in thoracic or lumbar spine. Multiple widespread TTPs 16/16 bilaterally, including upper and lower extremities.?Demonstrates 4/5 strength of quadriceps bilaterally as well as flexion/dorsiflexion of bilateral feet against resistance. 2+ pedal pulses bilaterally. Straight leg rise with dorsiflexion negative bilaterally. Diminished patellar and achilles reflexes bilaterally. Karoline sign is positive bilaterally, Reuben?s and Stinchfield tests are positive bilaterally. No groin pain with I/E hip rotations. Valsalva maneuver negative. Back: no CVA tenderness Cervical Spine: loss of normal cervical lordosis, cervical muscular tenderness, No Cervical spine tenderness and No step off deformity Thoracic/Lumbar Spine: thoracic and lumbar spine normal to inspection, No Thoracic/lumbar spine scar(s), Lasegue's sign negative, straight leg raise negative bilaterally, pain with thoraco-lumbar ROM, paraspinal muscle tenderness, thoraco-lumbar ROM limited, No thoracic spinal tenderness and lumbar spinal tenderness (L4-S1) Pelvis: buttock tenderness bilaterally Sacroiliac joints: bilaterally tender to palpation Assessment & Plan Assessment & Plan (1) Chronic low back pain: Code(s): M54.50 - Low back pain, unspecified; G89.29 - Other chronic pain Category: Medical (2) Lumbosacral spondylosis: Code(s): M47.817 - Spondylosis without myelopathy or radiculopathy, lumbosacral region Category: Medical (3) Left knee pain: Code(s): M25.562 - Pain in left knee Category: Medical (4) Fibromyalgia: Code(s): M79.7 - Fibromyalgia Category: Medical Plan Lumbar spine imaging to assess degree of degenerative changes, any subluxation, listhesis, compression fractures or pars defects and left knee xray to degree of arthritis. Briefly discussed interventional treatments for chronic low back and left knee pain. Encouraged daily physical activity, adequate hydration, sleep hygiene, consider CBT therapy and acupuncture for fibromyalgia and arthritic pain generators. Patient reports tramadol and amitriptyline are minimally beneficial. I have informed patient and family, I do not offer opioid prescribing. All questions and concerns have been answered and patient agreed with the treatment follow-up for x-ray results and sooner as needed. Orders: Orders XR lumbar spine 6V w bending Today G89.29 - Other chronic pain, M47.817 - Spondylosis without myelopathy or radiculopathy, lumbosacral region, M54.50 - Low back pain, unspecified XR knee LT 3V Today M25.562 - Pain in left knee Coding Level of Care Code New Pt Level 4 (25794) Complex EM visit Add On G2211 Diagnoses Chronic low back pain M54.50; G89.29 Lumbosacral spondylosis M47.817 Left knee pain M25.562 Fibromyalgia M79.7
[2024-02-10 13:54] VITALS: BP 124/67; PULSE 72; O2SAT 97; BMI 25.7
== END 2024-02-10 14:17 | disposition home or self-care (01) ==
LOC: HO.PMC 13:43
PROVIDERS: PCP Internal Medicine; Visit Provider Nurse Practitioner Family
DX: M54.50 Low back pain, unspecified (principal); G89.29 Other chronic pain; M47.817 Spondylosis without myelopathy or radiculopathy, lumbosacral region; M25.562 Pain in left knee; M79.7 Fibromyalgia
CPT/HCPCS: 99204; G2211

== ENCOUNTER → 2024-02-10 13:43 | Outpatient (BNVA) | payer OTHER, SELFPAY | PROVIDERS: PCP Internal Medicine; Visit Provider Nurse Practitioner Family | DX: M79.7 Fibromyalgia (principal); M54.50 Low back pain, unspecified; M25.562 Pain in left knee; G89.29 Other chronic pain; M47.817 Spondylosis without myelopathy or radiculopathy, lumbosacral region | CPT/HCPCS: 99202 ==

== ENCOUNTER 2024-04-20 12:44 | Outpatient (REF) | payer OTHER, SELFPAY ==
--- NOTE | ~2024-04-20 | XR_ITS ---
CLINICAL HISTORY: M15.9 - Polyosteoarthritis, unspecified 4 view left hand and wrist Comparison: None Findings: Bones intact. No dislocations. No significant arthritic change. No erosions. No radiopaque foreign body. IMPRESSION: 1. No acute findings This document has been electronically signed by: Antione Hernandez MD on 04/21/2024 07:37:39
--- NOTE | ~2024-04-20 | XR_ITS ---
CLINICAL HISTORY: M54.50 - Low back pain, unspecified 8 views lumbar spine Comparison: None Findings: Normal alignment, maintained with flexion and extension. No acute fractures or dislocation. Multiple level degenerative disc and facet change. There is aortic calcification. IMPRESSION: No acute findings. This document has been electronically signed by: Antione Hernandez MD on 04/21/2024 07:32:29
--- NOTE | ~2024-04-20 | XR_ITS ---
CLINICAL HISTORY: M15.9 - Polyosteoarthritis, unspecified 3 view right knee Comparison: None Findings: Bones intact. No dislocations. No significant arthritic change or erosions. No joint effusion. No radiopaque foreign body. IMPRESSION: 1. No acute findings. This document has been electronically signed by: Antione Hernandez MD on 04/21/2024 07:31:59
--- NOTE | ~2024-04-20 | XR_ITS ---
CLINICAL HISTORY: M25.562 - Pain in left knee 3 view left knee Comparison: None Findings: No fractures or dislocations. No significant loss of joint space, osteophytes, or erosions. No joint effusion. No radiopaque foreign body. IMPRESSION: 1. No acute findings. This document has been electronically signed by: Antione Hernandez MD on 04/21/2024 07:30:46
--- NOTE | ~2024-04-20 | XR_ITS ---
CLINICAL HISTORY: M15.9 - Polyosteoarthritis, unspecified 4 view right hand Comparison: None Findings: Bones intact. No dislocations. No significant arthritic change. No erosions. No radiopaque foreign body. IMPRESSION: 1. No acute findings This document has been electronically signed by: Antione Hernandez MD on 04/21/2024 07:31:09
[2024-04-20 13:14] LABS: MANUAL DIFF FLAG NO
[2024-04-20 14:09] LABS: Basophils Absolute Auto 0.1 X10*3/uL (0.0-0.2); Basophils Percent Auto 0.9 % (0-2); Eosinophils Absolute Auto 0.2 X10*3/uL (0.0-0.4); Eosinophils Percent Auto 2.1 % (0-4); Hematocrit 37.6 % (37.0-47.0); Hemoglobin 12.5 g/dl (12.0-16.0); Imm Gran Abs Auto 0.02 X10*3/uL (0.00-0.03); Imm Gran Pct Auto 0.3 % (0.0-0.4); Lymphocytes Absolute Auto 2.2 X10*3/uL (1.2-4.9); Mean Corpuscular HGB Conc 33.2 g/dl (31.0-35.0); Mean Corpuscular Hemoglobin 30.2 pg (27.0-33.0); Mean Corpuscular Volume 90.8 fL (80.0-98.0); Mean Platelet Volume 10.7 fL (9.4-12.3); Monocytes Absolute Auto 0.4 X10*3/uL (0.1-1.2); Monocytes Percent Auto 5.1 % (2-11); Neutrophils Absolute Auto 4.3 x10*3/uL (2.0-8.3); Neutrophils Percent Auto 60.6 % (45-73); Platelet Count 203 X10*3/uL (160-400); Red Blood Count 4.14 X10*6/uL (4.20-5.50); Red Cell Distribution Width 13.2 % (11.0-16.0)
[2024-04-20 14:33] LABS: Alanine Aminotransferase 33 U/L (0-31); Albumin Level 4.6 g/dL (3.5-5.0); Alkaline Phosphatase 86 U/L (39-117); Anion Gap 12 (12-20); Aspartate Amino Transferase 24 U/L (5-31); Bilirubin Total 0.4 mg/dL (0.0-1.0); Blood Urea Nitrogen 15 mg/dL (9-16); C Reactive Protein < 0.10 mg/dL (< or = 0.50); Calcium 9.3 mg/dL (8.4-10.2); Carbon Dioxide 28 mmol/L (22-29); Chloride 106 mmol/L (96-108); Estimated Glomerular Filt Rate 59; Glucose Random 202 mg/dL (60-115); Sodium 142 mmol/L (135-145); Total Protein 8.1 g/dL (6.5-8.0)
[2024-04-20 14:34] LABS: Rheumatoid Factor < 13.0 IU/mL (<15.0)
[2024-04-20 14:53] LABS: Erythrocyte Sedimentation Rate 11 MM/HR (0-20)
--- OUTSIDE RECORDS SUMMARY | 2024-04-20 16:11 | XMS_ITS | Continuity of Care Document ---
Author Organization [facility] Address [address] [place] [address]- Care Team Providers Care Sales Agent Financial Report Service Name Role Phone Dino LOYOLA, Bartolo Wilkes Primary Care Physician Encounter [facility] [place] Date(s): 03/09/24 - 04/08/24 [facility]/[address] [address]- Attending Physician: Admcharly, Edgar Encounter Type: Triage Allergies, Adverse Reactions, Alerts Substance Criticality Severity Reaction Reaction Severity Status Lyrica made me feel hyper Active Seafood swelling itching Active Immunizations Given and Recorded Vaccine Date Status Refusal Reason influenza virus vaccine, inactivated 01/05/23 Give n influenza virus vaccine, inactivated 01/20/22 Deuce rded influenza virus vaccine, inactivated 06/08/19 Give n influenza virus vaccine, inactivated 02/11/18 Deuce rded influenza virus vaccine, inactivated 1 12/16/16 Re corded influenza virus vaccine, inactivated 01/23/16 Give n influenza virus vaccine, inactivated 01/29/15 Give n influenza virus vaccine, inactivated 2 12/22/12 Gi bear influenza virus vaccine, inactivated 3 01/26/12 Gi bear influenza virus vaccine, inactivated 4 12/30/10 Gi bear influenza virus vaccine, inactivated 5 01/23/10 Gi bear influenza virus vaccine, inactivated 6 01/24/08 Gi bear influenza virus vaccine, inactivated 01/26/07 Give n influenza virus vaccine, inactivated 02/17/05 Give n influenza virus vaccine, inactivated 7 49 Gi bear SARS-CoV-2 mRNA ([id number]) vax 01/05/23 Recorded pneumococcal 20-valent conjugate vaccine 09/29/22 Given SARS-CoV-2 (COVID-19) mRNA BNT-162b2 vac 03/25/21 Given SARS-CoV-2 (COVID-19) mRNA BNT-162b2 vac 07/12/20 Given SARS-CoV-2 (COVID-19) mRNA BNT-162b2 vac 06/14/20 Given Influenza Virus Vaccine (oldterm) 8 11/24/19 Recor ded zoster vaccine, inactivated 10/09/19 Given zoster vaccine, inactivated 06/08/19 Given tetanus/diphtheria/pertussis, acel(Tdap) 10/09/19 Given tetanus/diphtheria/pertussis, acel(Tdap) 9 05/23/07 Given pneumococcal 13-valent vaccine 01/23/16 Given Zoster Vaccine Live 10 01/09/11 Given pneumococcal 23-valent vaccine 11 06/05/10 Given 1Result Comment: [01/11/2017] [facility] 2Result Comment: [12/22/2012] Ordered by Bratolo Sun MD 3Admin Note: VIS GIVEN:10/05/2011 4Admin Note: VIS01/04/09 gIVEN 5Admin Note: VIS 11/13/2008 GIVEN. Instr. in s&s of anaphylaxis and local reaction, and risks ofvaccine. JENNIFER 6Admin Note: ADM BY DIANA 7Admin Note: given by LAST. 8Result Comment: iveth 9Admin Note: vis given 10Admin Note: GIVEN 11Admin Note: GIVEN VIS 10/31/96 Medications amitriptyline 50 mg oral tablet 1 tablet = 50 mg, By Mouth, Daily at bedtime, # 90 tablet, 3 Refills, Maintenance, 05/25/23 2:12:00 PM EST, Tablet, [facility] #[id number], 164.5, cm, 05/25/23 13:49:00 EST, Height, 78.63, kg, 05/25/23 13:49:00 EST, Dry Weight Start Date: 05/25/23 Status: Ordered Quantity: 90.0 Unit: tablet Repeat number: 4 atorvastatin 20 mg oral tablet 1 tablet, By Mouth, Daily, # 90 tablet, 0 Refills, Maintenance, 02/22/24 12:13:00 PM EST, [facility] #[id number], 164.5, cm, 02/03/24 13:55:00 EDT, Height, 74.1, kg, 10/28/23 13:12:00 EDT, Dry Weight Start Date: 02/22/24 Status: Ordered Quantity: 90.0 Unit: tablet Repeat number: 1 clotrimazole 1% topical cream See Instructions, APPLY EXTERNALLY TO THE AFFECTED AREA TWICE DAILY, # 60 Gm, 1 Refills, Maintenance, 01/05/24 11:41:00 AM EDT, [facility] #[id number], 60, APPLY EXTERNALLY TO THE AFFECTED AREA TWICE DAILY, 164.5, cm, 10/28/23 13:12:00 EDT, Height, 74.1, kg, 10/28/23 13:12:00 EDT, Dry Weight Start Date: 01/05/24 Status: Ordered Quantity: 60.0 Unit: g Repeat number: 2 clotrimazole 1% topical cream See Instructions, APPLY EXTERNALLY TO THE AFFECTED AREA TWICE DAILY, # 60 Gm, 0 Refills, Maintenance, 12/11/22 6:59:00 PM EDT, [facility] #[id number], 60, APPLY EXTERNALLY TO THE AFFECTED AREA TWICE DAILY, 164.5, cm, 09/29/22 14:54:00 EDT, Height, 79.09, kg, 08/25/22 15:48:00 EDT, Dry Weight Start Date: 12/11/22 Status: Ordered Quantity: 60.0 Unit: g Repeat number: 1 docusate sodium 100 mg oral tablet 1 tablet = 100 mg, By Mouth, 2 times a day, PRN for constipation, # 60 tablet, 6 Refills, Maintenance, 07/27/23 4:16:00 PM EDT, Tablet, [email or web address] #[id number], Partial fill upon patient request if the prescription is for a schedule II opioid drug., 164.5, cm, 07/27/23 16:03:00 EDT, Height, 75.45, kg, 07/27/23 16:03:00 EDT, Dry Weight Start Date: 07/27/23 Status: Ordered Quantity: 60.0 Unit: tablet Repeat number: 7 dulaglutide 0.75 mg/0.5 mL subcutaneous solution 0.5 mL = 0.75 mg, Subcutaneous Injection, Every week, rotate injection sites T2DM E11.9 use x 4 week then increase to 1.5 mg weekly, # 2 mL, 0 Refills, Maintenance, 10/12/23 2:21:00 PM EDT, Solution, [email or web address] #[id number], Partial fill upon patient request if the prescription is for a schedule II opioid drug., 164.5, cm, 07/27/23 16:03:00 EDT, Height, 75.45, kg, 07/27/23 16:03:00 EDT, Dry Weight Start Date: 10/12/23 Status: Ordered Quantity: 2.0 Unit: mL Repeat number: 1 FREESTYLE LANCETS 100 FREESTYLE LANCETS 100, See Instructions, # 200 each, 11 Refills, Maintenance, USE DIRECTED, 02/03/23 2:17:00 PM EDT, 164.5, cm, 01/05/23 13:48:00 EDT, Height, 77.27, kg, 01/05/23 13:48:00 EDT, Dry Weight Start Date: 02/03/23 Status: Ordered Quantity: 200.0 Unit: each Repeat number: 1 FREESTYLE LITE BLOOD GLUCOSE STRIPS FREESTYLE LITE BLOOD GLUCOSE STRIPS, See Instructions, # 300 Unknown, 0 Refills, Maintenance, USE DIRECTED THREE TIMES DAILY., 01/16/22 10:17:00 AM EDT, 164.5, cm, 12/23/21 14:13:00 EDT, Height, 83.36, kg, 12/23/21 14:13:00 EDT, Dry Weight Start Date: 01/16/22 Status: Ordered Quantity: 300.0 Unit: Unknown Repeat number: 1 FREESTYLE LITE BLOOD GLUCOSE STRIPS FREESTYLE LITE BLOOD GLUCOSE STRIPS, See Instructions, # 300 Unknown, 0 Refills, Maintenance, USE DIRECTED THREE TIMES DAILY., 04/16/22 5:11:00 PM EST, 164.5, cm, 01/20/22 14:05:00 EDT, Height, 83.36, kg, 12/23/21 14:13:00 EDT, Dry Weight Start Date: 04/16/22 Status: Ordered Quantity: 300.0 Unit: Unknown Repeat number: 1 FREESTYLE LITE BLOOD GLUCOSE STRIPS FREESTYLE LITE BLOOD GLUCOSE STRIPS, See Instructions, # 300 Unknown, 0 Refills, Maintenance, USE DIRECTED THREE TIMES DAILY., 07/06/22 3:05:00 PM EDT, 164.5, cm, 04/23/22 15:40:00 EST, Height, 83.36, kg, 12/23/21 14:13:00 EDT, Dry Weight Start Date: 07/06/22 Status: Ordered Quantity: 300.0 Unit: Unknown Repeat number: 1 Freestyle Lite Lancets See Instructions, # 200 each, Refills 5, Tot. Refills 5, Maintenance, use as directed for Type 2 Diabetes Mellitus, 02/19/23 12:12:00 PM EST, Supply, 164.5, cm, 02/19/23 11:36:00 EST, Height, 77, kg,02/19/23 11:36:00 EST, Dry Weight Start Date: 02/19/23 Stop Date: 08/18/23 Status: Ordered Quantity: 200.0 Unit: each Repeat number: 6 Freestyle Lite Monitor See Instructions, # 1 each, Maintenance, check sugar 2-3 times a day, diabetes e 11.9, 12/23/21 2:42:00 PM EDT, Supply, 164.5, cm, 12/23/21 14:13:00 EDT, Height, 83.36, kg, 12/23/21 14:13:00 EDT, Dry Weight Start Date: 12/23/21 Status: Ordered Quantity: 1.0 Unit: each Repeat number: 1 Freestyle Lite Test Strips See Instructions, # 270 each, Refills 3, Tot. Refills 3, Maintenance, check 3 times a day Type 2 Diabetes Mellitus; E11.9, 3 month supply, 02/19/23 12:12:00 PM EST, Compound, 164.5, cm, 02/19/23 11:36:00 EST, Height, 77, kg, 02/19/23 11:36:00 EST, Dry Weight Start Date: 02/19/23 Stop Date: 02/14/24 Status: Ordered Quantity: 270.0 Unit: each Repeat number: 4 Freestyle Lite Test Strips See Instructions, # 180 each, Refills 1, Tot. Refills 1, Maintenance, use as directed for Type 2 Diabetes Mellitus; E11.9, 3 month supply, 12/13/19 3:27:00 PM EDT, Duplcate rx. Original rx sent 06/29/19. Remaining refill sent., Compound, 164.5, cm, 12/12/19 10:13:00 EDT, Height, 82.27, kg, 06/08/19 15:07:00 EST, Dry Weight Start Date: 12/13/19 Stop Date: 06/10/20 Status: Ordered Quantity: 180.0 Unit: each Repeat number: 2 Jardiance 25 mg oral tablet 1 tablet = 25 mg, By Mouth, Daily in AM, # 90 tablet, 3 Refills, Maintenance, 05/25/23 2:12:00 PM EST, [facility] #[id number], Partial fill upon patient request if the prescription is for a schedule II opioid drug., 164.5, cm, 05/25/23 13:49:00 EST, Height, 78.63, kg, 05/25/23 13:49:00 EST, DryWeight Start Date: 05/25/23 Status: Ordered Quantity: 90.0 Unit: tablet Repeat number: 4 levothyroxine 75 mcg (0.075 mg) oral tablet 1 tablet, By Mouth, Daily, # 90 tablet, 1 Refills, 01/05/24 11:41:00 AM EDT, [facility] #[id number], 164.5, cm, 10/28/23 13:12:00 EDT, Height, 74.1, kg, 10/28/23 13:12:00 EDT, Dry Weight Start Date: 01/05/24 Status: Ordered Quantity: 90.0 Unit: tablet Repeat number: 2 levothyroxine 75 mcg (0.075 mg) oral tablet See Instructions, TAKE 1 TABLET BY MOUTH DAILY, # 90 tablet, 3 Refills, Maintenance, 05/25/23 2:12:00 PM EST, [facility] #[id number], 164.5, cm, 05/25/23 13:49:00 EST, Height, 78.63, kg, 05/25/2412:49:00 EST, Dry Weight Start Date: 05/25/23 Status: Ordered Quantity: 90.0 Unit: tablet Repeat number: 4 lisinopril 20 mg oral tablet 1, tablet, By Mouth, 2 times a day, # 180 tablet, Refills 3, Maintenance, 02/15/24 12:11:00 PM EST,Route to Pharmacy Electronically, [facility] #[id number], 164.5, cm, 02/03/24 13:55:00 EDT, Height, 74.1, kg, 10/28/23 13:12:00 EDT, Dry Weight Start Date: 02/15/24 Status: Ordered Quantity: 180.0 Unit: tablet Repeat number: 1 metFORMIN 500 mg oral tablet 1 tablet, By Mouth, 2 times a day, # 180 tablet, 0 Refills, Maintenance, 03/21/24 1:44:00 PM EST, [facility] #[id number], 164.5, cm, 02/03/24 13:55:00 EDT, Height, 74.1, kg, 10/28/23 13:12:00 EDT, Dry Weight Start Date: 03/21/24 Status: Ordered Quantity: 180.0 Unit: tablet Repeat number: 1 ProAir HFA 90 mcg/inh inhalation aerosol 2 puffs, Inhalation, Every 4 hours, PRN NEEDED FOR WHEEZING, # 18 Gm, 3 Refills, 01/05/24 11:42:00 AM EDT, [facility] #[id number], 16, 2 puffs Inhalation Every 4 hours,PRN: NEEDED FOR WHEEZING, 164.5, cm, 10/28/23 13:12:00 EDT, Height, 74.1, kg, 10/28/23 13:12:00 EDT, Dry Weight Start Date: 01/05/24 Status: Ordered Quantity: 18.0 Unit: g Repeat number: 4 tiZANidine 2 mg oral tablet See Instructions, TAKE 1 TABLET BY MOUTH THREE TIMES DAILY, # 90 tablet, Refills 3, Tot. Refills 3,02/19/23 12:11:00 PM EST, Instructions Replace Required Details, Route to Pharmacy Electronically, [facility] #[id number], 164.5, cm, 02/19/23 11:36:00 EST, Height, 77, kg, 02/19/23 11:36:00 EST, Dry Weight Start Date: 02/19/23 Status: Ordered Quantity: 90.0 Unit: tablet Repeat number: 4 traMADol 50 mg oral tablet See Instructions, TAKE 1 TABLET BY MOUTH EVERY 12 HOURS DUE 05/25/2022. CAN TAKE. LESS THAN PRESCRIBED. sterile supply technician checked. as stopped taking the tizanidine, # 40 tablet, 1 Refills, Maintenance, 05/24/22 6:30:00 PM EST, [facility] #[id number], 164.5, cm, 04/23/22 15:40:00 EST, Height, 83.36, kg, 12/23/21 14:13:00 EDT, Dry Weight Start Date: 05/24/22 Status: Ordered Quantity: 40.0 Unit: tablet Repeat number: 2 Trulicity Pen 1.5 mg/0.5 mL subcutaneous solution 0.5 mL = 1.5 mg, Subcutaneous Injection, Every week, rotate injection sites, # 2 mL, 11 Refills, Maintenance, 05/25/23 2:35:00 PM EST, Solution, [facility] #[id number], Partial fill upon patient request if the prescription is for a schedule II opioid drug., 164.5, cm, 05/25/23 13:49:00 EST, Height, 78.63, kg, 05/25/23 13:49:00 EST, Dry Weight Start Date: 05/25/23 Status: Ordered Quantity: 2.0 Unit: mL Repeat number: 12 Ventolin HFA 108 mcg/inh inhalation aerosol with adapter See Instructions, INHALE 2 PUFFS BY MOUTH EVERY 4 HOURS NEEDED FOR WHEEZING, # 18 Gm, 0 Refills,Maintenance, 04/16/22 5:09:00 PM EST, [facility] #[id number], 164.5, cm, 01/20/22 14:05:00 EDT,Height, 83.36, kg, 12/23/21 14:13:00 EDT, Dry Weight Start Date: 04/16/22 Status: Ordered Quantity: 18.0 Unit: g Repeat number: 1 Vitamin D3 1000 intl units oral tablet 1 tablet = 25 mcg, By Mouth, Daily, # 90 tablet, 3 Refills, Maintenance, 10/28/23 1:28:00 PM EDT, Tablet, [email or web address] #[id number], Partial fill upon patient request if the prescription is for a schedule II opioid drug., 164.5, cm, 10/28/23 13:12:00 EDT, Height, 74.1, kg, 10/28/23 13:12:00 EDT, Dry Weight Start Date: 10/28/23 Status: Ordered Quantity: 90.0 Unit: tablet Repeat number: 4 Vitamin D3 1000 intl units oral tablet 1 tablet = 25 mcg, By Mouth, Daily, # 90 tablet, 3 Refills, Maintenance, 10/28/23 5:57:00 PM EDT, Tablet, [email or web address] #[id number], Partial fill upon patient request if the prescription is for a schedule II opioid drug., 164.5, cm, 10/28/23 13:12:00 EDT, Height, 74.1, kg, 10/28/23 13:12:00 EDT, Dry Weight Start Date: 10/28/23 Status: Ordered Quantity: 90.0 Unit: tablet Repeat number: 4 Problem List Condition Confirmation Course Effective Dates Status Health Status Informant Angina Confirmed Active Anxiety Confirmed Active Asthma Confirmed Active Depression Confirmed Active Diabetes mellitus type 2 Confirmed Active Diabetic peripheral neuropathy Confirmed Active Limitation due to disability 1 Confirmed Active Drug or alcohol risk assessment 2 Confirmed Active Hypercholesterolemia Confirmed Active Hypertension Confirmed Active Hypothyroidism Confirmed Active *[id number] [employer] Eleanor Baum Confirmed Active Sacroiliitis Confirmed Active 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 1initial Oswestry Disability Index: 40% ( moderate disability ) on 02/05/17 2SOAPP-R; 23 on 02/05/17 Social History Social History Type Response Smoking Status Never (less than 100 in lifetime) entered on: 07/11/20 Sex Sex Representation Female (finding) History and physical note * Event Display: History and Physical Hospital Authored Date: [id number] Laboratory * Event Display: Non [facility] Lab Results Authored Date: * Event Display: Non BH Lab Results Authored Date: * Event Display: Non BH Lab Results Authored Date: * Event Display: Non BH Lab Results Authored Date: Patient Care team information Care Team Personnel Name: Tina GALICIA, Kym Amaya Position: Reference Physician Member Role: Primary Care Nurse Address: [address] [place] [address]- [place] Telecom: Name: Bartolo Sun MD, I Position: [facility] Physician - Primary Care Member Role: PCP Address: [address] [place] [id number]- [place] Telecom: Care Team Related Persons Name: MIGUEL A BARAHONA Name: ALFREDO NDIAYE Name: KITTY NDIAYE Name: ARPAN NDIAYE Name: BRIELLE CHAMBERS Insurance Providers Guarantor name: MIGUEL A MONTEJO Health Plan Information #: 1 Payer: NA Member Number: NA Policy Number: NA Group Number: NA
--- OUTSIDE RECORDS SUMMARY | 2024-04-20 16:11 | XMS_ITS | Continuity of Care Document ---
Author Organization [facility] Address [address] [place] [address]- Care Team Providers Care Section Beamer Name Role Phone Dino LOYOLA, Bartolo Wilkes Primary Care Physician Encounter [facility] [place] Date(s): 02/22/24 - 03/23/24 [facility]/[address] [address]- Encounter Type: Triage Allergies, Adverse Reactions, Alerts Substance Criticality Severity Reaction Reaction Severity Status Seafood swelling itching Active Lyrica made me feel hyper Active Immunizations Given and Recorded Vaccine Date [...] inactivated 7 49 Gi bear SARS-CoV-2 mRNA ([id number]) vax 01/05/23 Recorded pneumococcal 20-valent conjugate vaccine [...] [facility] 2Result Comment: [12/22/2012] Ordered by Bartolo Sun MD 3Admin Note: VIS GIVEN:10/05/2011 4Admin [...] Refills, Maintenance, 05/25/23 2:12:00 PM EST, Tablet, [facility] #[id number], 164.5, cm, 05/25/23 13:49:00 EST, Height, 78.63, kg, 05/25/23 13:49:00 EST, Dry Weight Start Date: 05/25/23 Status: Ordered Quantity: 90.0 Unit: tablet Repeat number: 4 atorvastatin 20 mg oral tablet 1 tablet, By Mouth, Daily, # 90 tablet, 0 Refills, Maintenance, 02/22/24 12:13:00 PM EST, [facility] #[id number], 164.5, cm, 02/03/24 13:55:00 EDT, Height, 74.1, kg, 10/28/23 13:12:00 EDT, Dry Weight Start Date: 02/22/24 Status: Ordered Quantity: 90.0 Unit: tablet Repeat number: 1 clotrimazole 1% topical cream See Instructions, APPLY EXTERNALLY TO THE AFFECTED AREA TWICE DAILY, # 60 Gm, 1 Refills, Maintenance, 01/05/24 11:41:00 AM EDT, [facility] #[id number], 60, APPLY EXTERNALLY TO THE AFFECTED AREA TWICE DAILY, 164.5, cm, 10/28/23 13:12:00 EDT, Height, 74.1, kg, 10/28/23 13:12:00 EDT, Dry Weight Start Date: 01/05/24 Status: Ordered Quantity: 60.0 Unit: g Repeat number: 2 clotrimazole 1% topical cream See Instructions, APPLY EXTERNALLY TO THE AFFECTED AREA TWICE DAILY, # 60 Gm, 0 Refills, Maintenance, 12/11/22 6:59:00 PM EDT, [facility] #[id number], 60, APPLY EXTERNALLY TO THE AFFECTED AREA [...] Refills, Maintenance, 07/27/23 4:16:00 PM EDT, Tablet, [facility] #[id number], Partial fill upon patient request if the [...] Refills, Maintenance, 10/12/23 2:21:00 PM EDT, Solution, [email or web address] #[id number], Partial fill upon patient request if the [...] 3 Refills, Maintenance, 05/25/23 2:12:00 PM EST, [email or web address] #[id number], Partial fill upon patient request if the prescription is for a schedule II opioid drug., 164.5, cm, 05/25/23 13:49:00 EST, Height, 78.63, kg, 05/25/23 13:49:00 EST, DryWeight Start Date: 05/25/23 Status: Ordered Quantity: 90.0 Unit: tablet Repeat number: 4 levothyroxine 75 mcg (0.075 mg) oral tablet 1 tablet, By Mouth, Daily, # 90 tablet, 1 Refills, 01/05/24 11:41:00 AM EDT, [email or web address] #[id number], 164.5, cm, 10/28/23 13:12:00 EDT, Height, 74.1, kg, 10/28/23 13:12:00 EDT, Dry Weight Start Date: 01/05/24 Status: Ordered Quantity: 90.0 Unit: tablet Repeat number: 2 levothyroxine 75 mcg (0.075 mg) oral tablet See Instructions, TAKE 1 TABLET BY MOUTH DAILY, # 90 tablet, 3 Refills, Maintenance, 05/25/23 2:12:00 PM EST, [email or web address] #[id number], 164.5, cm, 05/25/23 13:49:00 EST, Height, 78.63, kg, 05/25/2412:49:00 EST, Dry Weight Start Date: 05/25/23 Status: Ordered Quantity: 90.0 Unit: tablet Repeat number: 4 lisinopril 20 mg oral tablet 1, tablet, By Mouth, 2 times a day, # 180 tablet, Refills 3, Maintenance, 02/15/24 12:11:00 PM EST,Route to Pharmacy Electronically, [email or web address] #[id number], 164.5, cm, 02/03/24 13:55:00 EDT, Height, 74.1, kg, 10/28/23 13:12:00 EDT, Dry Weight Start Date: 02/15/24 Status: Ordered Quantity: 180.0 Unit: tablet Repeat number: 1 metFORMIN 500 mg oral tablet 1 tablet, By Mouth, 2 times a day, # 180 tablet, 0 Refills, Maintenance, 03/21/24 1:44:00 PM EST, [email or web address] #[id number], 164.5, cm, 02/03/24 13:55:00 EDT, Height, 74.1, kg, 10/28/23 13:12:00 EDT, Dry Weight Start Date: 03/21/24 Status: Ordered Quantity: 180.0 Unit: tablet Repeat number: 1 ProAir HFA 90 mcg/inh inhalation aerosol 2 puffs, Inhalation, Every 4 hours, PRN NEEDED FOR WHEEZING, # 18 Gm, 3 Refills, 01/05/24 11:42:00 AM EDT, [email or web address] #[id number], 16, 2 puffs Inhalation Every 4 hours,PRN: [...] Replace Required Details, Route to Pharmacy Electronically, [email or web address] #[id number], 164.5, cm, 02/19/23 11:36:00 EST, Height, 77, kg, 02/19/23 11:36:00 EST, Dry Weight Start Date: 02/19/23 Status: Ordered Quantity: 90.0 Unit: tablet Repeat number: 4 traMADol 50 mg oral tablet See Instructions, TAKE 1 TABLET BY MOUTH EVERY 12 HOURS DUE 05/25/2022. CAN TAKE. LESS THAN PRESCRIBED. seo manager checked. as stopped taking the tizanidine, # 40 tablet, 1 Refills, Maintenance, 05/24/22 6:30:00 PM EST, [email or web address] #[id number], 164.5, cm, 04/23/22 15:40:00 EST, Height, 83.36, kg, 12/23/21 14:13:00 EDT, Dry Weight Start Date: 05/24/22 Status: Ordered Quantity: 40.0 Unit: tablet Repeat number: 2 Trulicity Pen 1.5 mg/0.5 mL subcutaneous solution 0.5 mL = 1.5 mg, Subcutaneous Injection, Every week, rotate injection sites, # 2 mL, 11 Refills, Maintenance, 05/25/23 2:35:00 PM EST, Solution, [facility] #[id number], Partial fill upon patient request if the [...] Gm, 0 Refills,Maintenance, 04/16/22 5:09:00 PM EST, [email or web address] #[id number], 164.5, cm, 01/20/22 14:05:00 EDT,Height, 83.36, kg, 12/23/21 14:13:00 EDT, Dry Weight Start Date: 04/16/22 Status: Ordered Quantity: 18.0 Unit: g Repeat number: 1 Vitamin D3 1000 intl units oral tablet 1 tablet = 25 mcg, By Mouth, Daily, # 90 tablet, 3 Refills, Maintenance, 10/28/23 1:28:00 PM EDT, Tablet, [facility] #[id number], Partial fill upon patient request if the [...] Refills, Maintenance, 10/28/23 5:57:00 PM EDT, Tablet, [facility] #56507, Partial fill upon patient request if the [...] Active Hypertension Confirmed Active Hypothyroidism Confirmed Active *[id number] [employer] Eleanor Baum Confirmed Active Sacroiliitis Confirmed Active 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 1initial Oswestry Disability Index: 40% ( moderate disability ) on 02/05/17 2SOAPP-R; 23 on 02/05/17 Social History Social History Type Response Smoking Status Never (less than 100 in lifetime) entered on: 07/11/20 Sex Sex Representation Female (finding) Patient Care team information Care Team Personnel Name: Kym Wilder NP Position: Reference Physician Member Role: Primary Care Nurse Address: [address] [place] [address]- [place] Telecom: Name: Bartolo Sun MD, I Position: S Physician - Primary Care Member Role: PCP Address: [address] [place] [address] [place] [address]- Telecom: Care Team Related Persons Name: MIGUEL A BARAHONA Name: ALFREDO NDIAYE Name: KITTY NDIAYE Name: ARPAN NDIAYE Name: BRIELLE CHAMBERS Insurance Providers Guarantor name: MIGUEL A MONTEJO Health Plan Information #: 1 Payer: NA Member Number: NA Policy Number: NA Group Number: NA
[2024-04-24 13:24] LABS: Prot Elec - Albumin 4.1 g/dL (3.8-4.8); Prot Elec - Alpha1 0.3 g/dL (0.2-0.3); Prot Elec - Alpha2 0.8 g/dL (0.5-0.9); Prot Elec - Beta 1 0.4 g/dL (0.4-0.6); Prot Elec - Beta 2 0.4 g/dL (0.2-0.5); Prot Elec - Gamma 0.9 g/dL (0.8-1.7); Prot Elec - Total Protein 6.8 g/dL (6.1-8.1)
[2024-04-24 15:13] LABS: SM/Ribonucleoprotein Ab <1.0 NEG AI (<1.0 NEG); Smith Protein <1.0 NEG AI (<1.0 NEG)
[2024-04-24 15:28] LABS: Cyclic Citrullinated Peptide <16 UNITS
[2024-04-25 13:39] LABS: Anti Nuclear Antibody Screen NEGATIVE (NEGATIVE)
== END 2024-04-20 12:45 | disposition home or self-care (01) ==
LOC: HO.XRAY 12:44
PROVIDERS: PCP Internal Medicine; Visit Provider Student in an Organized Health Care Education/Training Program
DX: M79.7 Fibromyalgia (principal); R63.4 Abnormal weight loss; M25.562 Pain in left knee; M15.9 Polyosteoarthritis, unspecified; M54.50 Low back pain, unspecified; G89.29 Other chronic pain; M47.817 Spondylosis without myelopathy or radiculopathy, lumbosacral region
CPT/HCPCS: 36415; 72114; 73110; 73130; 73562; 80053; 84165; 85025; 85652; 86038; 86140; 86200; 86235; 86431

== ENCOUNTER → 2024-04-20 13:15 | Outpatient (BNV) | payer OTHER, SELFPAY | PROVIDERS: PCP Internal Medicine; Visit Provider Specialist | DX: M15.9 Polyosteoarthritis, unspecified (principal) | CPT/HCPCS: 72114; 73130; 73562 ==

== ENCOUNTER 2024-08-07 12:33 | Outpatient (AMB) | payer OTHER, SELFPAY ==
--- NOTE | 2024-08-07 13:01 | MHC.OFFVIS ---
Vital Signs 08/07/24 13:04 Height 5 ft 6 in Weight 158 lb BMI 25.5 BP 183/80 H Blood Pressure Location Lt brachial Position Sitting Pulse 69 Pulse Source Pulse Oximeter Pulse Oximetry (%) 98 Oxygen Delivery Method Room Air Intake Visit Reasons: FU patient req/Pain increasing Intake Note: Pain today 8/10 Overlay Operator Required: Yes Overlay Operator Language: Traffic Superintendent Name: family Accompanied by: Family/Other Allergies pregabalin [From LYRICA] Allergy (Mild, Verified 08/07/24 13:04) HYPER seafood Allergy (Unknown, Uncoded 01/26/24 14:33) Anaphylaxis HPI Comments Details: The patient is a 73-year-old female presenting with chronic low back pain that significantly impacts her daily functionality. 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 Lumbar extension notably exacerbates her pain, necessitating alternative strategies to complete these tasks. Her current pain level is reported as severe, at a level of 8-10/10. Lumbar imaging noted for multiple level degenerative disc and facet arthropathy. This chronic pain has been managed with a variety of interventions over time, including previous Rheumatology evaluations and imaging which highlighted lower back arthritis. While an X-ray of her left knee showed no significant degenerative changes, the knee pain persists alongside her diagnosis of fibromyalgia, contributing to her overall pain experience. Her treatment plan has included medications for pain relief (tramadol, Tylenol) through PCP and management of anxiety and panic attacks (clonazepam) through Psychiatric services. - Onset and Timing: Chronic - Quality and Character: Severe, aching, incapacitating - Primary Location: Lower back, bilateral knee - Areas of Radiation: None specified - Exacerbating Factors: Lumbar extension, standing, cooking, washing dishes, bending down - Relieving Factors: Rest (not specifically detailed) - Interference with Activities: Difficulties bending, standing, performing household tasks; profoundly impacts daily functionality - Affect: Anxiety and occasional panic attacks related to chronic pain - Analgesia: Current medications include acetaminophen, tramadol, and clonazepam. Pain level is 10/10. 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 She reports pain most significant in lower back and left. Patient was referred to our office by Rheumatology. Denies any recent trauma, injury, or falls. Patient reports impaired gait and balance issues and dizziness and has completed physical therapy about 3 months ago at [facility] with minimal improvement in her pain reduction or functioning. Patient utilizes cane with walking today, reports using walker at home. Pain is constant and is most sever upon awakening in the morning and at night. Pain is rated at 10/10. Back pain is axial and does not radiate into lower extremities. Left knee pain is localized to grossly anterior aspects of left knee with lateral and medial joint tenderness and crepitus on flexion. She denies previous spine or joint injections. Pain affects her daily activities and functioning, mood, sleep, denies any fever or chills, locking or buckling, bladder or bowel dysfunction or saddle anesthesia. Location: Low back, left knee, widespread body pain Duration: Chronic pain, worsening for past 5-6 years Characteristics of symptom or complaint: Aching, spasming, throbbing, sharp, tingling, numbness, dull, heavy Aggravating or associated factors: Movements, walking, prolonged standing, cold weather, stress Relieving factors: Tramadol, Tylenol, amitriptyline, heat, diclofenac gel Treatment: PT at [facility] Re[facility] summer 2023-no relief, cane/walker [facility] Medical History (Updated 08/07/24 @ 13:15 by FE Belle) Weight loss, unintentional Osteoarthritis involving multiple joints on both sides of body Right shoulder pain Bilateral shoulder pain Carpal tunnel syndrome on both sides Medication monitoring encounter Uterine cancer Surgical History Hx of tonsillectomy Hx of cholecystectomy Hx of hysterectomy Family History Father HTN (hypertension) Diabetes Other Asthma Social History Household Members: None Housing: House Are you a primary palliative care nurse to a significant other at home: No Do you presently have visiting nurse or other home services: Yes ([employer]) Alcohol intake: former Patient Tobacco Use Status: Never used Tobacco Current occupational status: retired Review of Systems Const Details: - Musculoskeletal: Reports persistent low back pain, knee pain (left>right), fibromyalgia - Neurological: Denies headaches - Psychological: Reports anxiety and panic attacks All systems reviewed & are unremarkable except as noted in HPI and below Physical Exam Vital Signs: Last Vital Signs Pulse 69 08/07/24 13:04 BP 183/80 H 08/07/24 13:04 Pulse Ox 98 08/07/24 13:04 Oxygen Delivery Method Room Air 08/07/24 13:04 BMI result Body Mass Index 25.5 General: Appears afebrile. No acute distress. Alert and oriented. Mood and affect appropriate. Follows and participates in conversation appropriately. Respiratory effort is unlabored. No cough. Able to transition from sit to stand unassisted. Uses cane with ambulation. Ambulates with bilaterally normal heel strike and toe off, reports LLE weakness due to knee pain. General: Yes no CVA tenderness Back/Spine/Pelvis Other: Limited lumbar ROM due to pain. Painful facet loading bilaterally. Lumbar extension reproduces moderate-severe pain. Flexion is intact and reproduces mild pain. No midline tenderness in thoracic or lumbar spine. Multiple widespread TTPs 16/16 bilaterally, including upper and lower extremities.?Demonstrates 4/5 strength of quadriceps bilaterally as well as flexion/dorsiflexion of bilateral feet against resistance. 2+ pedal pulses bilaterally. Straight leg rise with dorsiflexion negative bilaterally. Diminished patellar and achilles reflexes bilaterally. Karoline sign is positive bilaterally, Reuben?s and Stinchfield tests are positive bilaterally. No groin pain with I/E hip rotations. Valsalva maneuver negative. Back: no CVA tenderness Cervical Spine: loss of normal cervical lordosis, cervical muscular tenderness, No Cervical spine tenderness and No step off deformity Thoracic/Lumbar Spine: thoracic and lumbar spine normal to inspection, No Thoracic/lumbar spine scar(s), Lasegue's sign negative, straight leg raise negative bilaterally, pain with thoraco-lumbar ROM, paraspinal muscle tenderness, thoraco-lumbar ROM limited, No thoracic spinal tenderness and lumbar spinal tenderness (L4-S1) Pelvis: buttock tenderness bilaterally Sacroiliac joints: bilaterally tender to palpation Extrem General: Yes capillary refill normal, Yes no clubbing, cyanosis or edema and Yes no calf tenderness Results Reviewed Results Reviewed: XR lumbar spine 6V w bending 04/21/24 Findings: Normal alignment, maintained with flexion and extension. No acute fractures or dislocation. Multiple level degenerative disc and facet change. There is aortic calcification. IMPRESSION: No acute findings. 3 view right knee 04/21/24 Comparison: None Findings: Bones intact. No dislocations. No significant arthritic change or erosions. No joint effusion. No radiopaque foreign body. IMPRESSION: No acute findings. Assessment & Plan Assessment & Plan (1) Chronic low back pain: Code(s): M54.50 - Low back pain, unspecified; G89.29 - Other chronic pain Category: Medical (2) Lumbosacral spondylosis: Code(s): M47.817 - Spondylosis without myelopathy or radiculopathy, lumbosacral region Category: Medical (3) Left knee pain: Code(s): M25.562 - Pain in left knee Category: Medical (4) Lumbar degenerative disc disease: Code(s): M51.369 - Other intervertebral disc degeneration, lumbar region without mention of lumbar back pain or lower extremity pain Category: Medical Plan To address the patient's chronic low back pain, diagnostic injections are planned to aid in identifying the pain source. Based on the response, options like peripheral nerve stimulation or radiofrequency ablation will be considered, potentially offering significant pain relief. The patient will maintain current pain medications and follow up with physical therapy at [facility] in [place] to improve functional mobility, core, strength and prevent falls. Schedule diagnostic bilateral L3-L4 DR L5 medial branch blocks with local, oral Ativan and fluoroscopy. Expectations, risks and benefits were reviewed. Patient is aware she will be contacted to schedule this procedure. All questions and concerns have been answered and patient agreed with the plan. Follow up after injections and sooner as needed. Patient was informed and verbally consented to the use of an ambient scribe for clinic note documentation during this visit. Orders: Orders PT Evaluation and Treatment Today G89.29 - Other chronic pain, M25.562 - Pain in left knee, M47.817 - Spondylosis without myelopathy or radiculopathy, lumbosacral region, M51.369 - Other intervertebral disc degeneration, lumbar region without mention of lumbar back pain or lower extremity pain, M54.50 - Low back pain, unspecified Coding Level of Care Code Est Pt Level 4 (86778) Complex EM visit Add On G2211 Diagnoses Chronic low back pain M54.50; G89.29 Lumbosacral spondylosis M47.817 Left knee pain M25.562 Lumbar degenerative disc disease M51.369
[2024-08-07 13:04] VITALS: BP 183/80; PULSE 69; O2SAT 98; BMI 25.5
--- OUTSIDE RECORDS SUMMARY | 2024-08-07 14:03 | XMS_ITS | Clinical Summary ---
Author Organization [facility] Address [address] [place] [address] Care Team Providers Care Bellstand Attendant Name Role Phone Unavailable Primary Care Provider Unavailabl e Source Comments PLEASE NOTE, if this patient is a minor, it may be UNLAWFUL to discuss sensitive information that is contained in these records (such as FAMILY PLANNING, MENTAL HEALTH or SUBSTANCE ABUSE) with the minor patient's parent or other person without the patient's specific authorization.[facility] Allergies No known active allergies Medications VENTOLIN HFA 90 mcg/actuation inhaler INL 2 PFS PO Q 4 H PRF WHZ 7 8 Active clonazePAM (KLONOPIN) 2 mg tablet TK 1 T PO D HS PRA 5 8 Active lisinopril (PRINIVIL,ZESTRI L) 20 mg tablet TK 1 T PO BID 2 8 Active omeprazole (PRILOSEC) [address] capsule TK 1 C PO D 2 8 Active PARoxetine HCl (PAXIL) 40 mg tablet TK 1 T PO D 3 8 Active traZODone (DESYREL) 100 mg tablet TK 3 TS PO D HS 1 8 Active levothyroxine (SYNTHROID, LEVOTHROID) 75 mcg tabletIndication s:Hypothyroidism , unspecified type Take 1 Tab by mouth once daily 30 Tab 3 8 Active metFORMIN (GLUCOPHAGE) 500 mg tabletIndication s:Prediabetes Take 1 Tab by mouth once daily with breakfast 90 Tab 1 8 Active FREESTYLE LITE STRIPS strips USE DIRECTED TO TEST FOR TYPE 2 DIABETES 0 Active FLOVENT HFA 110 mcg/actuation inhaler INHALE 2 PUFFS PO BID 0 Active amitriptyline (ELAVIL) 50 mg tablet TK 1 T PO QHS 0 Active DULoxetine (CYMBALTA) [address] capsule TK 1 C PO BID 0 Active FLUoxetine (PROZAC) 10 mg capsule TK ONE C PO QAM 0 Active Active Problems Problem Noted Date Diagnosed Date Prediabetes 07/27/2019 Hypothyroidism 02/21/2018 Essential hypertension 02/11/2018 Gastroesophageal reflux disease without esophagi tis 02/11/2018 Mild asthma without complication ([facility]) 02/11 Immunizations Immunization Administration Dates Next Due Influenza (FLUZONE), high-dose, trivalent, PF Family History Medical History Relation Name Comments Diabetes Father Hypertension Father Relation Name Status Comments Brother Alive Father Mother Sister Alive Social History Tobacco Use Types Packs/Day Years Used Date Smoking Tobacco: Never Smokeless Tobacco: Never Social Connections Answer Date Recorded Social Connections and Isolation 0 11/28/2018 Financial Resource Strain Answer Date R ecorded Financial Resource Strain 0 2018 Stress Answer Date Recorded Stress 0 11/28/2018 Physical Activity Answer Date Recorded Physical Activity 0 11/28/2018 Food Insecurity Answer Date Recorded Food 0 11/28/2018 Transportation Needs Answer Date Record ed Transportation 0 11/28/2018 Housing Stability Answer Date Recorded Housing 0 11/28/2018 Safety and Environment Answer Date Deuce rded Safety 0 11/28/2018 Utilities Answer Date Recorded Utilities 0 11/28/2018 Employment Answer Date Recorded Employment 0 11/28/2018 Comments Unknown Sex and Gender Information Value Date Recorded Sex Assigned at Female 02/11/2018 9:40 AM PST Legal Sex Female 7:47 AM PDT Gender Identity Female 02/11/2018 9:40 AM PST Sexual Orientation Straight 02/11/2018 9: 40 AM PST Last Filed Vital Signs Vital Sign Reading Time Taken Comments Blood Pressure 158/60 02/11/2018 11:07 AM EST Pulse 64 02/11/2018 11:07 AM EST Temperature 37.5 ??C (99.5 ??F) 02/11/2018 11:[address] Respiratory Rate 14 02/11/2018 11:07 AM EST Oxygen Saturation - - Inhaled Oxygen Concentration - - Weight 84.4 kg (186 lb) 02/11/2018 11:07 AM EST Height 164 cm (5' 4.57 ) 02/11/2018 11:07 AM EST Body Mass Index 31.37 02/11/2018 11:07 AM EST Plan of Treatment Not on file Insurance [facility] Member Subscriber Plan / Payer (Ef fective 2018-Present) Name:Genny Sandhu Relation to Subscriber:Self Name:Genny Sandhu Payer ID:[id number] Group ID:Not on file Type:Zen Address: [facility] [address] [address]
--- OUTSIDE RECORDS SUMMARY | 2024-08-07 14:03 | XMS_ITS | Clinical Summary ---
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 Name Role Phone Unavailable Primary Care Provider Unavailabl e Social History Tobacco Use Types Packs/Day Years Used Date Smoking Tobacco: Never Assessed Comments Unknown Sex and Gender Information Value Date Recorded Sex Assigned at Not on file Legal Sex Female 5:41 PM EST Gender Identity Not on file Sexual Orientation Not on file Plan of Treatment Health Maintenance Due Date Last Done Comments Breast Cancer Screening 1950 DTaP,Tdap,and Td Vaccines (1 - Tdap) 1968 Pneumococcal Vaccine: 50+ Ye ars (1 of 1 - PCV) 12/30/1999 Zoster Vaccines (1 of 2) 12/30/1999 COVID-19 Vaccine ( - 2023-2 5 season) 2023 Influenza Vaccine (Season Ended) 2024 RSV Immunization Adult Patie nts (1 - 1-dose 75+ series) 2024 HIB Vaccines Aged Out No longer eligi ble based on patient's age to complete this topic HPV Vaccines Aged Out No longer eligi ble based on patient's age to complete this topic Hepatitis A Vaccines Aged Out No long er eligible based on patient's age to complete this topic Hepatitis B Vaccines Aged Out No long er eligible based on patient's age to complete this topic IPV Vaccines Aged Out No longer eligi ble based on patient's age to complete this topic MMR Vaccines Aged Out No longer eligi ble based on patient's age to complete this topic Meningococcal ACWY Vaccine Aged Out N o longer eligible based on patient's age to complete this topic Meningococcal B Vaccine Aged Out No l onger eligible based on patient's age to complete this topic RSV Immunization Patients Un bre 20 months Aged Out No longer eligible b ased on patient's age to complete this topic Varicella Vaccines Aged Out No longer eligible based on patient's age to complete this topic
== END 2024-08-07 13:20 | disposition home or self-care (01) ==
LOC: HO.PMC 12:33
PROVIDERS: PCP Internal Medicine; Visit Provider Nurse Practitioner Family
DX: M54.50 Low back pain, unspecified (principal); G89.29 Other chronic pain; M47.817 Spondylosis without myelopathy or radiculopathy, lumbosacral region; M25.562 Pain in left knee; M51.369 Other intervertebral disc degeneration, lumbar region without mention of lumbar back pain or lower extremity pain
CPT/HCPCS: 99214; G2211

== ENCOUNTER → 2024-08-07 12:33 | Outpatient (BNVA) | payer OTHER, SELFPAY | PROVIDERS: PCP Internal Medicine; Visit Provider Nurse Practitioner Family | DX: M54.50 Low back pain, unspecified (principal); M47.817 Spondylosis without myelopathy or radiculopathy, lumbosacral region; M25.562 Pain in left knee; M51.369 Other intervertebral disc degeneration, lumbar region without mention of lumbar back pain or lower extremity pain; G89.29 Other chronic pain | CPT/HCPCS: 99212 ==

== ENCOUNTER 2024-09-07 06:10 | Outpatient (REF) | payer OTHER, SELFPAY ==
--- NOTE | ~2024-09-07 | FL_ITS ---
EXAMINATION: FL GUIDANCE ONLY HISTORY: M47.817 - Spondylosis without myelopathy or radiculopathy, lumbosacral... COMPARISON: None available. TECHNIQUE: Fluoroscopy time: 9.8 seconds. Cumulative Dose: 2.8095 mGy. DAP: 0.4850 mGym2 Images: 3. FINDINGS: Fluoroscopic spot films of the lumbar spine demonstrate needles and contrast material in the regions of the bilateral L3-4, L4-5, and L5-S1 facet joints. FL/FL guidance in treatment room IMPRESSION: Fluoroscopy during procedure. Please see procedure report for additional information. Electronically signed by: Moris Emery MD 09/07/2024 03:05 PM EDT
--- OUTSIDE RECORDS SUMMARY | 2024-09-07 06:12 | XMS_ITS | Clinical Summary ---
Author Organization [facility] ity Address [address] [place] [address] Care Team Providers Care Patient Financial Counselor Name Role Phone Unavailable Primary Care Provider [...]
== END 2024-09-07 06:11 | disposition home or self-care (01) ==
LOC: CF 06:10
PROVIDERS: Visit Provider Internal Medicine
DX: M47.817 Spondylosis without myelopathy or radiculopathy, lumbosacral region (principal)
CPT/HCPCS: 64493; 64494; J2003; J2795; Q9967

== ENCOUNTER 2024-09-07 12:06 | Outpatient (AMB) | payer OTHER, SELFPAY ==
[2024-09-07 12:11] VITALS: BP 151/70; PULSE 73; RESP 16; O2SAT 98
--- NOTE | 2024-09-07 12:11 | MHC.OFFVIS ---
Vital Signs 09/07/24 12:11 09/07/24 12:42 BP 151/70 H 168/62 H Blood Pressure Location Lt brachial Lt brachial Position Sitting Sitting Respiration 16 16 Pulse 73 70 Pulse Source Pulse Oximeter Pulse Oximeter Pulse Oximetry (%) 98 98 Oxygen Delivery Method Room Air Room Air Intake Visit Reasons: BILATERAL DIAGNOSTIC L3, L4, DRL5 MBB Allergies pregabalin (From LYRICA) Allergy (Mild, Verified 09/11/24 13:37) HYPER seafood Allergy (Unknown, Uncoded 09/07/24 12:12) Anaphylaxis Medication List - Last Reconciled 09/07/24 by Marlene Iglesias LPN acetaminophen ER (Tylenol Arthritis Pain) 650 mg PO Q8H PRN albuterol sulfate 90 mcg/actuation 2 puffs PO Q4H PRN amitriptyline 50 mg PO BEDTIME amitriptyline 150 mg PO BEDTIME atorvastatin 20 mg PO DAILY bupropion HCl XL 150 mg PO DAILY cholecalciferol (vitamin D3) 25 mcg PO DAILY clonazepam 1 mg PO BID PRN clotrimazole 1% appl topical DAILY diclofenac sodium 1% grams topical QID duloxetine 60 mg PO DAILY fluoxetine 1 cap PO QAM fluticasone propionate 110 mcg/actuation (Flovent HFA) 2 puffs inhalation BID levothyroxine 1 tab PO DAILY lisinopril 1 tab PO BID metformin 1 tab PO BID tramadol 50 mg PO BID 90 days HPI HPI BILATERAL DIAGNOSTIC L3, L4, DRL5 MBB: Details: Patient presents for scheduled procedure. Denies any recent cough, cold, infection, fever or other significant changes in medical history since last office visit. [facility] Medical History Weight loss, unintentional Osteoarthritis involving multiple joints on both sides of body Right shoulder pain Bilateral shoulder pain Carpal tunnel syndrome on both sides Medication monitoring encounter Uterine cancer Surgical History Hx of tonsillectomy Hx of cholecystectomy Hx of hysterectomy Family History Father HTN (hypertension) Diabetes Other Asthma Social History Household Members: None Housing: House Are you a primary care worker to a significant other at home: No Do you presently have visiting nurse or other home services: Yes ([employer]) Alcohol intake: former Patient Tobacco Use Status: Never used Tobacco Current occupational status: retired Physical Exam Vital Signs: Last Vital Signs Pulse 70 09/07/24 12:42 Resp 16 09/07/24 12:42 BP 168/62 H 09/07/24 12:42 Pulse Ox 98 09/07/24 12:42 Oxygen Delivery Method Room Air 09/07/24 12:42 Office Procedures Lumbar/Sacral Facet Inj Details: Lumbar Medial Branch Block, Bilateral L3, L4 medial branches and L5 Dorsal Ramus (2 levels, 3 nerves) After obtaining written consent, pre-procedure blood pressure and pulse were recorded and are in the nursing record for review. The patient was placed in a prone position. The respective lumbosacral area was prepped with chloraprep and draped in sterile fashion. The skin over the target medial branch nerves was anesthetized with 0.5% lidocaine. A 22 gauge 3.5 inch needle was inserted into the target medial branch nerve under fluoroscopic guidance. No paresthesias were elicited with needle placement and aspiration was negative for blood and CSF. Next, 0.2cc of omnipaque 180 was injected to verify positioning. Next 0.5 ml 0.5% ropivicaine was injected (0.5cc total per level). The identical procedure was performed at the remaining levels. The skin was cleansed and a sterile bandage was applied. Following the procedure the patient's vital signs were stable. The patient tolerated the procedure well and no complications were encountered. Following the procedure the patient's vital signs were stable. The patient was discharged home in good condition with post-procedural instructions. Time Out: Immediately prior to the procedure, the following was verbally confirmed that there is a signed consent form and that the correct patient, planned procedure, site and side are consistent with documentation and that necessary equipment and/or blood products are available prior to the start of the case. Complications: none EBL: <5 cc 66098 - with Fluoroscopy (bilateral) 68754 - second level, with Fluoroscopy Procedure code (CPT) selection complete Assessment & Plan Assessment & Plan (1) Lumbosacral spondylosis: Code(s): M47.817 - Spondylosis without myelopathy or radiculopathy, lumbosacral region Category: Medical Plan Patient is status post bilateral lower lumbar diagnostic MBBs. Patient tolerated procedure well and was discharged home in stable condition with discharge instructions. All questions were answered. We will follow-up via telephone or in clinic to assess response to therapy. A follow-up appointment was made during today's visit. Orders: Orders FL guidance in treatment room 09/07/24 M47.817 - Spondylosis without myelopathy or radiculopathy, lumbosacral region Coding Level of Care Code Procedure Only Diagnoses Lumbosacral spondylosis M47.817 CPT Codes Facet Injection-Lumbar/Sacral - CPT: 36363 - with Fluoroscopy ([id number]) Facet Injection-Lumbar/Sacral - CPT: 23705 - second level, with Fluoroscopy ([id number])
[2024-09-07 12:42] VITALS: BP 168/62; PULSE 70; RESP 16; O2SAT 98
--- OUTSIDE RECORDS SUMMARY | 2024-09-07 14:14 | XMS_ITS | Clinical Summary ---
Author Organization [facility] ity Address [address] [place] [address] Care Team Providers Care Operational Review Sergeant Name Role Phone Unavailable Primary Care Provider [...]
== END 2024-09-07 12:42 | disposition home or self-care (01) ==
LOC: HO.PMCPRC 12:06
PROVIDERS: PCP Internal Medicine; Visit Provider Internal Medicine
DX: M47.817 Spondylosis without myelopathy or radiculopathy, lumbosacral region (principal)
CPT/HCPCS: 64493; 64494

== ENCOUNTER 2024-09-11 13:33 | Outpatient (AMB) | payer OTHER, SELFPAY ==
[2024-09-11 13:37] VITALS: BP 196/87; PULSE 82; O2SAT 96
--- NOTE | 2024-09-11 13:37 | A.OFFVIS_ITS ---
Vital Signs 09/11/24 13:37 Height 5 ft 6 in BP 196/87 H Blood Pressure Location Lt brachial Position Sitting Pulse 82 Pulse Source Pulse Oximeter Pulse Oximetry (%) 96 Oxygen Delivery Method Room Air Intake Visit Reasons: s/p Rodolfo Dx L3-L4-L5 MBB Pearl Technician Required: Yes Pearl Technician Language: Corking Machine Operator Services: Pearl Technician Offered & Declined Pearl Technician Name: Sis Accompanied by: Grand Bruner Allergies pregabalin [From LYRICA] Allergy (Mild, Verified 09/11/24 13:37) HYPER seafood Allergy (Unknown, Uncoded 09/07/24 12:12) Anaphylaxis HPI Comments Details: The patient is a 73-year-old female presenting with chronic low back pain. The patient experienced a significant decrease in pain to a level of 2 out of 10 after receiving bilateral diagnostic L3-L4 DR L5 MBB injections last with Dr. Galicia. This improvement was noted to last only for a day. The patient was able to sleep better and felt more relaxed following the procedure, and she awoke feeling much improved the next day. Despite these improvements, a slight pain persisted, with the patient rating the residual discomfort at a 2 on a 10- point scale. Patient is interested to proceed with Sprint PNS trial as next steps for a onger term pain relief. We also discussed lumbar medial branch RFA procedure. Past Procedures: 09/07/24: Bilateral Diagnostic L3-L4 DRL5 MBB-80% pain relief for 24 hours PRIOR: The patient is a 73-year-old female presenting with chronic low back pain that significantly impacts her daily functionality. 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 Lumbar extension notably exacerbates her pain, necessitating alternative strategies to complete these tasks. Her current pain level is reported as severe, at a level of 8-10/10. Lumbar imaging noted for multiple level degenerative disc and facet arthropathy. This chronic pain has been managed with a variety of interventions over time, including previous Rheumatology evaluations and imaging which highlighted lower back arthritis. While an X-ray of her left knee showed no significant degenerative changes, the knee pain persists alongside her diagnosis of fibromyalgia, contributing to her overall pain experience. Her treatment plan has included medications for pain relief (tramadol, Tylenol) through PCP and management of anxiety and panic attacks (clonazepam) through Psychiatric services. - Onset and Timing: Chronic - Quality and Character: Severe, aching, incapacitating - Primary Location: Lower back, bilateral knee - Areas of Radiation: None specified - Exacerbating Factors: Lumbar extension, standing, cooking, washing dishes, bending down - Relieving Factors: Rest (not specifically detailed) - Interference with Activities: Difficulties bending, standing, performing household tasks; profoundly impacts daily functionality - Affect: Anxiety and occasional panic attacks related to chronic pain - Analgesia: Current medications include acetaminophen, tramadol, and clonazepam. Pain level is 10/10. 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 She reports pain most significant in lower back and left. Patient was referred to our office by Rheumatology. Denies any recent trauma, injury, or falls. Patient reports impaired gait and balance issues and dizziness and has completed physical therapy about 3 months ago at [facility] with minimal improvement in her pain reduction or functioning. Patient utilizes cane with walking today, reports using walker at home. Pain is constant and is most sever upon awakening in the morning and at night. Pain is rated at 10/10. Back pain is axial and does not radiate into lower extremities. Left knee pain is localized to grossly anterior aspects of left knee with lateral and medial joint tenderness and crepitus on flexion. She denies previous spine or joint injections. Pain affects her daily activities and functioning, mood, sleep, denies any fever or chills, locking or buckling, bladder or bowel dysfunction or saddle anesthesia. Location: Low back, left knee, widespread body pain Duration: Chronic pain, worsening for past 5-6 years Characteristics of symptom or complaint: Aching, spasming, throbbing, sharp, tingling, numbness, dull, heavy Aggravating or associated factors: Movements, walking, prolonged standing, cold weather, stress Relieving factors: Tramadol, Tylenol, amitriptyline, heat, diclofenac gel Treatment: PT at [facility] Re[facility] summer 2024-no relief, cane/walker PFSH Medical History Weight loss, unintentional Osteoarthritis involving multiple joints on both sides of body Right shoulder pain Bilateral shoulder pain Carpal tunnel syndrome on both sides Medication monitoring encounter Uterine cancer Surgical History Hx of tonsillectomy Hx of cholecystectomy Hx of hysterectomy Family History Father HTN (hypertension) Diabetes Other Asthma Social History Household Members: None Housing: House Are you a primary nanny caregiver to a significant other at home: No Do you presently have visiting nurse or other home services: Yes ([employer]) Alcohol intake: former Patient Tobacco Use Status: Never used Tobacco Current occupational status: retired Review of Systems Const All systems reviewed & are unremarkable except as noted in HPI and below Physical Exam Vital Signs: Last Vital Signs Pulse 82 09/11/24 13:37 BP 196/87 H 09/11/24 13:37 Pulse Ox 96 09/11/24 13:37 Oxygen Delivery Method Room Air 09/11/24 13:37 General: Appears afebrile. No acute distress. Alert and oriented. Mood and affect appropriate. Follows and participates in conversation appropriately. Respiratory effort is unlabored. No cough. Able to transition from sit to stand unassisted. Uses cane with ambulation. Ambulates with bilaterally normal heel strike and toe off, reports LLE weakness due to knee pain. General: Yes no CVA tenderness Back/Spine/Pelvis Other: Limited lumbar ROM due to pain. Positivel facet loading bilaterally. Lumbar extension reproduces moderate pain. Flexion is intact and reproduces mild pain. No midline tenderness in thoracic or lumbar spine. Multiple widespread TTPs 16/16 bilaterally, including upper and lower extremities.?Demonstrates 4/5 strength of quadriceps bilaterally as well as flexion/dorsiflexion of bilateral feet against resistance. 2+ pedal pulses bilaterally. Straight leg rise with dorsiflexion negative bilaterally. Diminished patellar and achilles reflexes bilaterally. Karoline sign is positive bilaterally, Reuben?s and Stinchfield tests are positive bilaterally. No groin pain with I/E hip rotations. Valsalva maneuver negative. Back: no CVA tenderness Cervical Spine: loss of normal cervical lordosis, cervical muscular tenderness, No Cervical spine tenderness and No step off deformity Thoracic/Lumbar Spine: thoracic and lumbar spine normal to inspection, No Thoracic/lumbar spine scar(s), Lasegue's sign negative, straight leg raise negative bilaterally, pain with thoraco-lumbar ROM, paraspinal muscle tenderness, thoraco-lumbar ROM limited, No thoracic spinal tenderness and lumbar spinal tenderness (L4-S1) Pelvis: buttock tenderness bilaterally Sacroiliac joints: bilaterally tender to palpation Results Reviewed Results Reviewed: XR lumbar spine 6V w bending 04/21/24 Findings: Normal alignment, maintained with flexion and extension. No acute fractures or dislocation. Multiple level degenerative disc and facet change. There is aortic calcification. IMPRESSION: No acute findings. 3 view right knee 04/21/24 Comparison: None Findings: Bones intact. No dislocations. No significant arthritic change or erosions. No joint effusion. No radiopaque foreign body. IMPRESSION: No acute findings. Assessment & Plan Assessment & Plan (1) Chronic low back pain: Code(s): M54.50 - Low back pain, unspecified; G89.29 - Other chronic pain Category: Medical (2) Lumbosacral spondylosis: Code(s): M47.817 - Spondylosis without myelopathy or radiculopathy, lumbosacral region Category: Medical (3) Lumbar degenerative disc disease: Code(s): M51.369 - Other intervertebral disc degeneration, lumbar region without mention of lumbar back pain or lower extremity pain Category: Medical Plan Given the patient's positive short-term relief from the diagnostic lumbar medial branch blocks, I discussed continuing with peripheral nerve stimulation to potentially provide prolonged pain control. Risks and benefits were explained, and the patient agreed to proceed. Should this intervention not yield adequate relief, we will consider radiofrequency ablation as the next step, following the insurance protocol. Detailed instructions for device management and precautions regarding MRI were provided, ensuring patient education is complete. Schedule bilateral L3 medial branch Sprint PNS placement with local, oral Ativan and fluoroscopy. Expectations, risks and benefits were reviewed. Patient is aware she will be contacted to schedule this procedure. All questions and concerns have been answered and patient agreed with the plan. Follow up after Sprint trial and sooner as needed. Patient was informed and verbally consented to the use of an ambient scribe for clinic note documentation during this visit. Patient Instructions: I provided the patient with detailed information regarding the peripheral nerve stimulation procedure, including the method of application and expected duration of relief. I explained that this procedure aims to provide continuous pain management over two months. The potential next step, radiofrequency ablation, was introduced as an option if nerve stimulation does not yield satisfactory results. I outlined the benefits and risks associated with each procedure, emphasizing the need for compliance with the protocols and device management. The patient showed understanding of the procedure's purpose and methods, and agreed to proceed with the peripheral nerve stimulation trial. Discussion included safety instructions, particularly concerning bathing and MRI compatibility. I confirmed the patient's willingness to conduct regular maintenance of the device at home. Coding Level of Care Code Est Pt Level 3 (61452) Complex EM visit Add On G2211 Diagnoses Chronic low back pain M54.50; G89.29 Lumbosacral spondylosis M47.817 Lumbar degenerative disc disease M51.369
--- OUTSIDE RECORDS SUMMARY | 2024-09-11 15:19 | XMS_ITS | Clinical Summary ---
Author Organization [facility] ity Address [address] [place] [address] Care Team Providers Care Drum Handler Name Role Phone Unavailable Primary Care Provider [...]
== END 2024-09-11 13:50 | disposition home or self-care (01) ==
LOC: HO.PMC 13:33
PROVIDERS: PCP Internal Medicine; Visit Provider Nurse Practitioner Family
DX: M54.50 Low back pain, unspecified (principal); G89.29 Other chronic pain; M47.817 Spondylosis without myelopathy or radiculopathy, lumbosacral region; M51.369 Other intervertebral disc degeneration, lumbar region without mention of lumbar back pain or lower extremity pain
CPT/HCPCS: 99213; G2211

== ENCOUNTER → 2024-09-11 13:33 | Outpatient (BNVA) | payer OTHER, SELFPAY | PROVIDERS: PCP Internal Medicine; Visit Provider Nurse Practitioner Family | DX: M54.50 Low back pain, unspecified (principal); G89.29 Other chronic pain; M79.7 Fibromyalgia; M47.817 Spondylosis without myelopathy or radiculopathy, lumbosacral region; M51.369 Other intervertebral disc degeneration, lumbar region without mention of lumbar back pain or lower extremity pain | CPT/HCPCS: 99212 ==

== ENCOUNTER 2024-10-26 06:43 | Outpatient (REF) | payer OTHER, SELFPAY ==
--- OUTSIDE RECORDS SUMMARY | 2024-10-21 23:59 | XMS_ITS | Continuity of Care Document ---
Author Organization [facility] Address [address] [place] [address]- Care Team Providers Care Mold Making Plastics Sheets Supervisor Name Role Phone Dino LOYOLA, Bartolo Wilkes Primary Care Physician ( [phone] [place] [facility] [place]s): 09/21/24 - 10/21/24 [facility]/[address] [address]- Encounter Type: Triage Allergies, Adverse Reactions, Alerts Substance Criticality Severity Reaction Reaction Severity Status Lyrica made me feel hyper Active Seafood swelling itching Active Immunizations Given and Recorded Vaccine Date Status Refusal Reason RSV vaccine, preF A-preF B, recombinant 06/06/24 G iven influenza virus vaccine, inactivated 01/05/23 Give n [...] inactivated 7 49 Gi bear SARS-CoV-2 mRNA ([id number]) vax 01/05/23 Recorded pneumococcal 20-valent conjugate vaccine [...] GIVEN 11Admin Note: GIVEN VIS 10/31/96 Medications Abrysvo preservative-free intramuscular injection 0.5 mL, Intramuscular, Once, # 0.5 mL, 0 Refills, Soft Stop, 3/4/25 2:26:00 PM EST, [facility], Partial fill upon patient request if the prescription is for a schedule II opioid drug., 0.5 mL Intramuscular Once, 164.5, cm, 02/03/24 13:55:00 EDT, Height, 74.1, kg, 10/28/23 13:12:00 EDT, Dry Weight Start Date: 06/06/24 Status: Ordered Quantity: 0.5 Unit: mL Repeat number: 1 amitriptyline 50 mg oral tablet 1 tablet = 50 mg, By Mouth, Daily at bedtime, # 90 tablet, 3 Refills, Maintenance, 09/14/24 1:11:00 PM EDT, Tablet, [facility] #[id number], 164.5, cm, 09/14/24 12:34:00 EDT, Height, 71.81, kg, 09/14/24 12:34:00 EDT, Dry Weight Start Date: 09/14/24 Status: Ordered Quantity: 90.0 Unit: tablet Repeat number: 4 clotrimazole 1% topical cream See Instructions, APPLYEXTERNALLY TO THE AFFECTED AREA TWICE DAILY, # 60 Gm, 1 Refills, Maintenance, 09/14/24 1:09:00 PM EDT, [facility] #[id number], 40, APPLYEXTERNALLY TO THE AFFECTED AREA TWICE DAILY, 164.5, cm, 09/14/24 12:34:00 EDT, Height, 71.81, kg, 09/14/24 12:34:00 EDT, Dry Weight Start Date: 09/14/24 Status: Ordered Quantity: 60.0 Unit: g Repeat number: 2 Flovent HFA 110 mcg/inh inhalation aerosol 2 puffs, Inhalation, 2 times a day, # 12 Gm, 11 Refills, Maintenance, 09/14/24 1:08:00 PM EDT, [facility] #[id number], 164.5, cm, 09/14/24 12:34:00 EDT, Height, 71.81, kg, 09/14/24 12:34:00 EDT, Dry Weight Start Date: 09/14/24 Status: Ordered Quantity: 12.0 Unit: g Repeat number: 12 Jardiance 25 mg oral tablet 1 tablet = 25 mg, By Mouth, Daily in AM, # 90 tablet, 3 Refills, Maintenance, 09/14/24 1:07:00 PM EDT, [facility] #[id number], Partial fill upon patient request if the prescription is for a schedule II opioid drug., 164.5, cm, 09/14/24 12:34:00 EDT, Height, 71.81, kg, 09/14/24 12:34:00 EDT, DryWeight Start Date: 09/14/24 Status: Ordered Quantity: 90.0 Unit: tablet Repeat number: 4 levothyroxine 75 mcg (0.075 mg) oral tablet 1 tablet, By Mouth, Daily, # 90 tablet, 1 Refills, 09/14/24 1:09:00 PM EDT, [facility] #[id number], 164.5, cm, 09/14/24 12:34:00 EDT, Height, 71.81, kg, 09/14/24 12:34:00 EDT, Dry Weight Start Date: 09/14/24 Status: Ordered Quantity: 90.0 Unit: tablet Repeat number: 2 lisinopril 20 mg oral tablet 1, tablet, By Mouth, 2 times a day, # 180 tablet, Refills 3, Tot. Refills 3, Maintenance, 09/14/24 1:10:00 PM EDT, Route to Pharmacy Electronically, [facility] #[id number], 164.5, cm, 09/14/24 12:34:00 EDT, Height, 71.81, kg, 09/14/24 12:34:00 EDT, Dry Weight Start Date: 09/14/24 Status: Ordered Quantity: 180.0 Unit: tablet Repeat number: 4 metFORMIN 500 mg oral tablet 1 tablet, By Mouth, 2 times a day, # 180 tablet, 0 Refills, Maintenance, 03/21/24 1:44:00 PM EST, [facility] #[id number], 164.5, cm, 02/03/24 13:55:00 EDT, Height, 74.1, kg, 10/28/23 13:12:00 EDT, Dry Weight Start Date: 03/21/24 Status: Ordered Quantity: 180.0 Unit: tablet Repeat number: 1 metFORMIN 500 mg oral tablet See Instructions, TAKE 1 TABLET BY MOUTH TWICE DAILY, # 180 tablet, 0 Refills, Maintenance, :07:00 PM EDT, [facility] #[id number], 164.5, cm, 09/14/24 12:34:00 EDT, Height, 71.81, kg, 09/14/24 12:34:00 EDT, Dry Weight Start Date: 09/14/24 Status: Ordered Quantity: 180.0 Unit: tablet Repeat number: 1 traMADol 50 mg oral tablet See Instructions, TAKE 1 TABLET BY MOUTH EVERY 12 hOURS DUE 09/14/2024. CAN TAKE. LESS THAN PRESCRIBED. it senior software engineer java checked., # 40 tablet, 1 Refills, Maintenance, 09/14/24 1:12:00 PM EDT, [facility]#[id number], 164.5, cm, 09/14/24 12:34:00 EDT, Height, 71.81, kg, 09/14/24 12:34:00 EDT, Dry Weight Start Date: 09/14/24 Status: Ordered Quantity: 40.0 Unit: tablet Repeat number: 2 Tylenol Extra Strength 500 mg oral tablet 2 tablet = 1,000 mg, By Mouth, 3 times a day, PRN Pain , Severe, # 150 tablet, 3 Refills, Acute 02/13/25 8:07:00 AM EST, 06/22/24 8:07:00 AM EDT, Tablet, [facility] #[id number], Partial fill uponpatient request if the prescription is for a schedule II opioid drug., 164.5, cm, 06/06/24 14:32:00EST, Height, 74.1, kg, 10/28/23 13:12:00 EDT, Dry Weight Start Date: 06/22/24 Stop Date: 02/13/25 Status: Ordered Quantity: 150.0 Unit: tablet Repeat number: 4 Ventolin HFA 108 mcg/inh inhalation aerosol with adapter 2 puffs, Inhalation, Every 4 hours, PRN NEEDED FOR WHEEZING, # 18 Gm, 0 Refills, Maintenance, 09/05/24 3:14:00 PM EDT, [facility] #[id number], 164.5, cm, 06/06/24 14:32:00 EST, Height, 74.1, kg, 10/28/23 13:12:00 EDT, Dry Weight Start Date: 09/05/24 Status: Ordered Quantity: 18.0 Unit: g Repeat number: 1 Problem List Condition Confirmation Course Effective Dates Status Health Status Informant Angina Confirmed Active Anxiety Confirmed Active Asthma Confirmed Active Depression Confirmed Active Diabetes mellitus type 2 Confirmed Active Diabetic peripheral neuropathy Confirmed Active Limitation due to disability 1 Confirmed Active Drug or alcohol risk assessment 2 Confirmed Active Hypercholesterolemia Confirmed Active Hypertension Confirmed Active Hypothyroidism Confirmed Active *[phone] Glass Handler Eleanor Baum Confirmed Active Sacroiliitis Confirmed Active [...] Physician Member Role: Primary Care Nurse Address: [address] [place] [address]- Telecom: Name: Bartolo Sun MD, I Position: [facility] Physician - Primary Care Member Role: PCP Address: [address] [place] [address]- Telecom: Care Team Related Persons Name: MIGUEL A BARAHONA Name: ALFREDO NDIAYE Name: KITTY NDIAYE Name: ARPAN NDIYAE Name: BRIELLE CHAMBERS Insurance Providers Guarantor name: MIGUEL A GUSTABO Health Plan Information #: 1 [facility] Payer Identifier: MATTHEW Member Number: [id number] Group Number: [id number] Subscriber Identifier: [id number] Relationship to Subscriber: self Coverage Type: Medicare Managed Care (Includes Medicare Advantage Plans) Coverage Verification Date: MATTHEW Telecom: NA Address:
--- NOTE | ~2024-10-26 | FL_ITS ---
EXAMINATION: FL GUIDANCE ONLY HISTORY: M47.817 - Spondylosis without myelopathy or radiculopathy, lumbosacral COMPARISON: None available. TECHNIQUE: Fluoroscopy time: 0.1 minutes. Cumulative Dose: 1.39 mGy. DAP: 0.0125 mGym2 Images: 3. FINDINGS: Fluoroscopic spot films of the lumbar spine demonstrate a portion of an electrode. FL/FL guidance in treatment room IMPRESSION: Fluoroscopy during procedure. Please see procedure report for additional information. Electronically signed by: Moris Emery MD 10/26/2024 03:47 PM EDT
--- OUTSIDE RECORDS SUMMARY | 2024-10-26 06:45 | XMS_ITS | Clinical Summary ---
Author Organization [facility] ity Address [address] [place] [address] Care Team Providers Care Business Systems Advisor Name Role Phone Unavailable Primary Care Provider [...] Vaccines (1 of 2) 12/30/1999 COVID-19 Vaccine (1 - 2023-2 5 season) 2023 Depression Screening 04/05/2024 Influenza Vaccine (#1) 2024 RSV Immunization Adult Patie nts (1 [...]
--- OUTSIDE RECORDS SUMMARY | 2024-10-26 06:45 | XMS_ITS | Clinical Summary ---
Author Organization [facility] Address [address] [place] [address] Care Team Providers Care Manager Credit Collections Name Role Phone Unavailable Primary Care Provider [...] esophagi tis 02/11/2018 Mild asthma without complication ([facility]) 02/11 Immunizations Immunization Administration Dates Next Due [...] 63 02/11/2018 11:07 AM EST Temperature 37.5 C (99.5 F) 02/11/2018 11:07 AM EST Respiratory Rate 14 02/11/2018 11:07 AM EST Oxygen Saturation - - Inhaled Oxygen Concentration - - Weight 84.4 kg (186 lb) 02/11/2018 11:07 AM EST Height 164 cm (5' 4.57 ) 02/11/2018 11:07 AM EST Body Mass Index 31.37 02/11/2018 11:07 AM EST Plan of Treatment Not on file Insurance [facility]
== END 2024-10-26 06:44 | disposition home or self-care (01) ==
LOC: CF 06:43
PROVIDERS: Visit Provider Internal Medicine
DX: M47.817 Spondylosis without myelopathy or radiculopathy, lumbosacral region (principal); G89.29 Other chronic pain
CPT/HCPCS: 64555; C1778; J2003

== ENCOUNTER 2024-10-26 12:45 | Outpatient (AMB) | payer OTHER, SELFPAY ==
[2024-10-26 13:06] VITALS: BP 140/73; PULSE 75; RESP 16; O2SAT 96; BMI 25.5
--- NOTE | 2024-10-26 13:06 | A.OFFVIS_ITS ---
Vital Signs 10/26/24 13:06 10/26/24 14:03 Height 5 ft 6 in 5 ft 6 in Weight 158 lb 158 lb BMI 25.5 25.5 BP 140/73 H 140/73 H Blood Pressure Location Lt brachial Lt brachial Position Sitting Sitting Respiration 16 16 Pulse 75 75 Pulse Source Pulse Oximeter Pulse Oximeter Pulse Oximetry (%) 96 96 Oxygen Delivery Method Room Air Room Air Intake Visit Reasons: LEFT L3 SPRINT PNS TRIAL/ATIVAN Allergies pregabalin (From LYRICA) Allergy (Mild, Verified 09/11/24 13:37) HYPER seafood Allergy (Unknown, Uncoded 09/07/24 12:12) Anaphylaxis HPI HPI LEFT L3 SPRINT PNS TRIAL/ATIVAN: Details: Patient presents for scheduled procedure. Denies any recent cough, cold, infection, fever or other significant changes in medical history since last office visit. 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 After the risks, benefits and alternatives were discussed with the patient and informed consent was obtained, patient was placed in the prone position and padded to foster comfort. The skin overlying the lumbosacral spine was prepped and draped in sterile fashion. Fluoroscopy was used to identify the spinous process and lamina in the center of the patient?s region of pain. After identifying and marking the intended target along the course of the medial branch nerve, the skin around the planned entry point and the subcutaneous tissues were injected with lidocaine 1%. An introducer needle and stimulating probe were assembled, inserted and advanced along the intended course of the medial branch nerve as it traverses the lamina medial and inferior to the zygapophyseal joint, taking care to maintain the proper depth of insertion as the introducer is advanced under fluoroscopic guidance. The introducer needle was delivered to a location in proximity to the nerve. Multiple stimulation parameters were used to deliver stimulation to the target medial branch nerve in concert with stimulating at multiple positions around the nerve. Nerve target acquisition was confirmed noting generation of paresthesias in the paravertebral regions corresponding to the level being stimulated. Various electrical parameter combinations were tested, and the lead location was adjusted (physically relocated) until the patient indicated paresthesia/muscle tension overlapping the distribution of the patient?s typical region of pain. The stimulating probe was removed from the introducer and a percutaneous lead was guided through the needle and delivered to a location in similar proximity to the nerve. Final location was verified with electrical stimulation and documented with fluoroscopy. The introducer needle was removed, and the exposed end of the percutaneous lead was attached to an external stimulator unit. Various electrical parameter combinations were again tested until the patient indicated paresthesia or muscle tension overlapping the distribution of the patient?s typical region of pain. After confirming that lead impedance was in the normal range, the external unit was detached, the needle was removed, and the lead was anchored at the skin. The lead was threaded into the connector block and electrical continuity and desired patient response was confirmed. The connector block was attached to the external stimulator unit. The site was covered with a sterile occlusive dressing. The patient was observed for stability of vital signs and comfort. Sprint PNS Device: Sprint PNS Device [id number] Percutaneous Peripheral Neuroelectrode Procedure: 73036 - Percutaneous Peripheral Neuroelectrode Procedure code (CPT) selection complete Office Meds lidocaine HCl 10 mg/mL (1 %) injection solution Performing Provider: Marcy Mallory APRN, TOBI Performing Location: [facility] Administered by: Yamil Galicia MD on 10/31/24 12:26 Dose Route Admin Location Dispensed Lot Number Expiration Date [employer] Supervisor 5 mL subcut 5 mL Total Dispensed Waste 5 mL 0 % Assessment & Plan Assessment & Plan (1) Lumbosacral spondylosis: Code(s): M47.817 - Spondylosis without myelopathy or radiculopathy, lumbosacral region Category: Medical (2) Chronic pain: Code(s): G89.29 - Other chronic pain Category: Medical Plan Patient is status post temporary left L3 medial branch nerve stimulator placement. Patient tolerated procedure well and was discharged home in stable condition with discharge instructions. All questions were answered. We will follow-up via telephone or in clinic to assess response to therapy. A follow-up appointment was made during today's visit. Orders: Orders FL guidance in treatment room 10/26/24 M47.817 - Spondylosis without myelopathy or radiculopathy, lumbosacral region AMB Sprint PNS 10/26/24 M47.817 - Spondylosis without myelopathy or radiculopathy, lumbosacral region Medications: New lorazepam (Ativan) Take 30 minutes prior to arrival to procedure 1 mg PO ONCE 1 tab 0RF anxiety Coding Level of Care Code Procedure Only Diagnoses Lumbosacral spondylosis M47.817 Chronic pain G89.29 CPT Codes Sprint PNS - Sprint PNS Device: Sprint PNS Device ([id number]) Sprint PNS - SPRINT: 64478 - Percutaneous Peripheral Neuroelectrode ([id number]) Implantable Device Implantable Device Implantable Devices [employer]ating Supervisor Implant Date Expiration Date Analgesic PENS system 1 [employer] 10/26/24
[2024-10-26 14:03] VITALS: BP 140/73; PULSE 75; RESP 16; O2SAT 96; BMI 25.5
== END 2024-10-26 14:11 | disposition home or self-care (01) ==
LOC: HO.PMCPRC 12:45
PROVIDERS: PCP Internal Medicine; Visit Provider Internal Medicine
DX: M47.817 Spondylosis without myelopathy or radiculopathy, lumbosacral region (principal); G89.29 Other chronic pain
CPT/HCPCS: 64555

== ENCOUNTER 2024-11-02 13:03 | Outpatient (AMB) | payer OTHER, SELFPAY ==
--- NOTE | 2024-11-02 13:06 | MHC.OFFVIS ---
Vital Signs 11/02/24 13:10 Height 5 ft 6 in Weight 158 lb BMI 25.5 BP 130/61 Blood Pressure Location Lt brachial Position Sitting Pulse 67 Pulse Source Pulse Oximeter Pulse Oximetry (%) 97 Oxygen Delivery Method Room Air Intake Visit Reasons: LEFT L3 SPRINT PNS TRIAL Intake Note: Pain today 10/12 Frame Feeder Required: No Accompanied by: Family/Other Allergies pregabalin (From LYRICA) Allergy (Mild, Verified 11/02/24 13:12) HYPER seafood Allergy (Unknown, Uncoded 09/07/24 12:12) Anaphylaxis HPI Comments Details: The patient is a 73-year-old female presenting with chronic axial low back pain and left L3 Sprint PNS trial. She underwent peripheral nerve stimulation placement one week ago to manage her chronic axial low back pain, which has been persistent and debilitating. Post-procedure, the patient experienced increased pain, likely due to overstimulation, as the device was set to a high level of 90. The patient did not contact the Sprint consumer sales representative for device adjustment guidance, which may have exacerbated her discomfort. She has since adjusted the stimulation level to 60, but continues to experience daily pain. Patient reports she turned off her device yesterday as she was seeing us today. The patient was advised to adjust the stimulation to a level that provides relief without overstimulation, starting between at 40 and slowly increasing as tolerated and keep at the level that provides her adequate pain relief and no overstimulation. Unfortunately, patient did not bring all of her device connectors and we were not able to evaluate most tolerable and effective settings for her. She was also informed about the need to remove the device if an MRI is required in the future. The dressing was removed today. Lead insertion site look clean, dry, intact, no redness, no swelling, no pathological discharge. Area was cleansed with Chloraprep, applied Bacitracin and covered with Sprint Tegaderm film and gauze dressing. Past Procedures: 10/26/24: Left L3 medial branch Sprint PNS trial-minimal pain relief, likely to overstimulation 09/07/24: Bilateral Diagnostic L3-L4 DRL5 MBB-80% pain relief for 24 hours PRIOR: The patient is a 73-year-old female presenting with chronic low back pain that significantly impacts her daily functionality. 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 Lumbar extension notably exacerbates her pain, necessitating alternative strategies to complete these tasks. Her current pain level is reported as severe, at a level of 8-10/10. Lumbar imaging noted for multiple level degenerative disc and facet arthropathy. This chronic pain has been managed with a variety of interventions over time, including previous Rheumatology evaluations and imaging which highlighted lower back arthritis. While an X-ray of her left knee showed no significant degenerative changes, the knee pain persists alongside her diagnosis of fibromyalgia, contributing to her overall pain experience. Her treatment plan has included medications for pain relief (tramadol, Tylenol) through PCP and management of anxiety and panic attacks (clonazepam) through Psychiatric services. - Onset and Timing: Chronic - Quality and Character: Severe, aching, incapacitating - Primary Location: Lower back, bilateral knee - Areas of Radiation: None specified - Exacerbating Factors: Lumbar extension, standing, cooking, washing dishes, bending down - Relieving Factors: Rest (not specifically detailed) - Interference with Activities: Difficulties bending, standing, performing household tasks; profoundly impacts daily functionality - Affect: Anxiety and occasional panic attacks related to chronic pain - Analgesia: Current medications include acetaminophen, tramadol, and clonazepam. Pain level is 10/10. 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 She reports pain most significant in lower back and left. Patient was referred to our office by Rheumatology. Denies any recent trauma, injury, or falls. Patient reports impaired gait and balance issues and dizziness and has completed physical therapy about 3 months ago at [facility] with minimal improvement in her pain reduction or functioning. Patient utilizes cane with walking today, reports using walker at home. Pain is constant and is most sever upon awakening in the morning and at night. Pain is rated at 10/10. Back pain is axial and does not radiate into lower extremities. Left knee pain is localized to grossly anterior aspects of left knee with lateral and medial joint tenderness and crepitus on flexion. She denies previous spine or joint injections. Pain affects her daily activities and functioning, mood, sleep, denies any fever or chills, locking or buckling, bladder or bowel dysfunction or saddle anesthesia. Location: Low back, left knee, widespread body pain Duration: Chronic pain, worsening for past 5-6 years Characteristics of symptom or complaint: Aching, spasming, throbbing, sharp, tingling, numbness, dull, heavy Aggravating or associated factors: Movements, walking, prolonged standing, cold weather, stress Relieving factors: Tramadol, Tylenol, amitriptyline, heat, diclofenac gel Treatment: PT at [facility] summer 2023-no relief, cane/walker [facility] Medical History Weight loss, unintentional Osteoarthritis involving multiple joints on both sides of body Right shoulder pain Bilateral shoulder pain Carpal tunnel syndrome on both sides Medication monitoring encounter Uterine cancer Surgical History Hx of tonsillectomy Hx of cholecystectomy Hx of hysterectomy Family History Father HTN (hypertension) Diabetes Other Asthma Social History Household Members: None Housing: House Are you a primary child care worker to a significant other at home: No Do you 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 No acute distress. Alert and oriented. Mood and affect appropriate. Follows and participates in conversation appropriately. Respiratory effort is unlabored. No cough. Able to transition from sit to stand unassisted. Uses cane with ambulation. Ambulates with bilaterally normal heel strike and toe off, reports left knee pain. Lead Insertion Site: Lead insertion site is clean, dry, intact.? No pathological discharge, no swelling and no erythema.? Lead site dressing was changed today in the clinic. Results Reviewed Results Reviewed: XR lumbar spine 6V w bending 04/21/24 Findings: Normal alignment, maintained with flexion and extension. No acute fractures or dislocation. Multiple level degenerative disc and facet change. There is aortic calcification. IMPRESSION: No acute findings. 3 view right knee 04/21/24 Comparison: None Findings: Bones intact. No dislocations. No significant arthritic change or erosions. No joint effusion. No radiopaque foreign body. IMPRESSION: No acute findings. Assessment & Plan Assessment & Plan (1) Lumbosacral spondylosis: Code(s): M47.817 - Spondylosis without myelopathy or radiculopathy, lumbosacral region Category: Medical (2) Chronic pain: Code(s): G89.29 - Other chronic pain Category: Medical Plan Patient is one week status post temporary left L3 medial branch nerve stimulator placement with minimal improvement. She was advised to adjust the peripheral nerve stimulation to a level between 40 and 55 to avoid overstimulation and achieve optimal pain relief. She was instructed to contact the Sprint consumer sales representative if further guidance is needed. A follow-up appointment was scheduled for next week to reassess the device's effectiveness and the patient's pain levels. Patient was informed and verbally consented to the use of an ambient scribe for clinic note documentation during this visit. Coding Level of Care Code Est Pt Level 3 (16830) Complex EM visit Add On G2211 Diagnoses Lumbosacral spondylosis M47.817 Chronic pain G89.29
[2024-11-02 13:10] VITALS: BP 130/61; PULSE 67; O2SAT 97; BMI 25.5
--- OUTSIDE RECORDS SUMMARY | 2024-11-02 13:14 | XMS_ITS | Clinical Summary ---
Author Organization [facility] ity Address [address] [place] [address] Care Team Providers Care Inspector Golf Ball Name Role Phone Unavailable Primary Care Provider [...]
--- OUTSIDE RECORDS SUMMARY | 2024-11-02 13:14 | XMS_ITS | Clinical Summary ---
Author Organization [facility] Address [address] [place] [address] Care Team Providers Care Track Leader Name Role Phone Unavailable Primary Care Provider [...] esophagi tis 02/11/2018 Mild asthma without complication ([facility]) 02/11 Immunizations Immunization Administration Dates Next Due [...] Plan of Treatment Not on file Insurance [facility]
== END 2024-11-02 13:40 | disposition home or self-care (01) ==
PROVIDERS: PCP Internal Medicine; Visit Provider Nurse Practitioner Family
DX: M47.817 Spondylosis without myelopathy or radiculopathy, lumbosacral region (principal); G89.29 Other chronic pain
CPT/HCPCS: 99024

== ENCOUNTER → 2024-11-02 13:03 | Outpatient (BNVA) | payer OTHER, SELFPAY | PROVIDERS: PCP Internal Medicine; Visit Provider Nurse Practitioner Family | DX: M47.817 Spondylosis without myelopathy or radiculopathy, lumbosacral region (principal); G89.29 Other chronic pain; M79.18 Myalgia, other site | CPT/HCPCS: 99212 ==

== ENCOUNTER 2024-11-16 07:35 | Outpatient (REF) | payer OTHER, SELFPAY ==
--- OUTSIDE RECORDS SUMMARY | 2024-11-16 07:37 | XMS_ITS | Clinical Summary ---
Author Organization [facility] Address [address] [place] [address] Care Team Providers Care Burlap Man Name Role Phone Unavailable Primary Care Provider [...] esophagi tis 02/11/2018 Mild asthma without complication ([facility]) 02/11 Immunizations Immunization Administration Dates [...] Plan of Treatment Not on file Insurance [facility]
--- OUTSIDE RECORDS SUMMARY | 2024-11-16 07:37 | XMS_ITS | Clinical Summary ---
Author Organization [facility] [facility] ity Address [address] [place] [address] Care Team Providers Care Tape Fastener Machine Operator Name Role Phone Unavailable Primary Care Provider [...]
== END 2024-11-16 07:36 | disposition home or self-care (01) ==
LOC: CF 07:35
PROVIDERS: Visit Provider Internal Medicine
DX: M47.817 Spondylosis without myelopathy or radiculopathy, lumbosacral region (principal); M54.50 Low back pain, unspecified; G89.29 Other chronic pain
CPT/HCPCS: 64585; 99212; J2003

== ENCOUNTER 2024-11-16 12:51 | Outpatient (AMB) | payer OTHER, SELFPAY ==
--- NOTE | 2024-11-16 12:52 | MHC.OFFVIS ---
Vital Signs 11/16/24 13:00 BP 151/109 H Blood Pressure Location Lt brachial Position Sitting Respiration 16 Pulse 81 Pulse Source Pulse Oximeter Pulse Oximetry (%) 98 Oxygen Delivery Method Room Air Intake Visit Reasons: RIGHT L3 SPRINT PNS TRIAL/ATIVAN Allergies pregabalin (From LYRICA) Allergy (Mild, Verified 11/02/24 13:12) HYPER seafood Allergy (Unknown, Uncoded 09/07/24 12:12) Anaphylaxis HPI HPI RIGHT L3 SPRINT PNS TRIAL/ATIVAN: Details: Patient is here for follow-up for her lumbar temporary nerve stimulator. She was originally scheduled for a right-sided placement. However she reports being unable to manage in the device that is already present on the left side and has been having difficulties with operating it appropriately. She did report about 25% relief in the 1st week after the placement but now she has lost the cable and has not been using it of late. She would like the left-sided device to be removed. She is not interested in proceeding with a right-sided placement. On exam: - Appears afebrile. - Alert and oriented. - Mood and affect appropriate. - Follows and participates in conversation appropriately. - Respiratory effort is unlabored. - Able to transition from sit to stand unassisted. - Ambulates with bilaterally normal heel strike and toe off. - Able to stand and walk on toes and heels. - Lead was removed with tip intact. 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 All questions were answered. Patient states she will follow-up with our ELECTRONICS INSTRUCTOR to discuss further options for low back pain management. Orders: Orders FL guidance in treatment room Today G89.29 - Other chronic pain, M47.817 - Spondylosis without myelopathy or radiculopathy, lumbosacral region, M54.50 - Low back pain, unspecified Coding Level of Care Code Est Pt Level 2 (00300) Diagnoses Chronic low back pain M54.50; G89.29
[2024-11-16 13:00] VITALS: BP 151/109; PULSE 81; RESP 16; O2SAT 98
== END 2024-11-16 13:00 | disposition home or self-care (01) ==
LOC: HO.PMCPRC 12:52
PROVIDERS: PCP Internal Medicine; Visit Provider Internal Medicine
DX: M54.50 Low back pain, unspecified (principal); G89.29 Other chronic pain
CPT/HCPCS: 64585; 99213